=== PATIENT | male | born 1990 | race Caucasian/White ===

== ENCOUNTER 2019-11-13 19:06 | Outpatient (REF) | payer MEDICARE, MEDICAID, SELFPAY ==
[2019-11-13 20:59] LABS: Anion Gap 5.3 mmol/L (3-11); BUN 7 mg/dL (7-18); CO2 30.7 mmol/L (21.0-32.0); Calcium 8.9 mg/dL (8.5-10.1); Chloride 104 mmol/L (98-107); Glucose 99 mg/dL (74-106); Potassium 3.9 mmol/L (3.5-5.1); Sodium 140 mmol/L (136-145)
[2019-11-13 21:02] LABS: Hemoglobin A1C 5.7 % (3.8-5.6)
== END 2019-11-13 19:26 ==
LOC: NCHCN 19:06
PROVIDERS: PCP Internal Medicine; Visit Provider Physician Assistant
DX: I10 Essential (primary) hypertension (principal); L83 Acanthosis nigricans; R73.09 Other abnormal glucose
CPT/HCPCS: 80048; 83036

== ENCOUNTER 2021-06-25 17:39 | Inpatient (IN) | payer MEDICARE, MEDICAID, SELFPAY ==
[2021-06-25 17:49] VITALS: BP 140/80; PULSE 103; RESP 16; TEMP 36.3; O2SAT 96
--- NOTE | 2021-06-25 18:30 | DI.CT_ITS ---
Exam(s) CT ABDOMEN PELVIS W EXAM: CT ABDOMEN PELVIS W CLINICAL HISTORY: RLQ abd pain TECHNIQUE: COMPARISON: No exams were available for comparison FINDINGS: CT examination of the abdomen and pelvis was performed with bolus infusion of 100 cc of Omnipaque 350 . Images obtained through the lung bases are unremarkable. The liver shows evidence of hepatic steatosis with no evidence of a focal mass. Spleen is unremarkable in appearance.. Gallbladder and bile ducts are unremarkable. Pancreas is unremarkable in appearance. Adrenals appear normal bilaterally. Kidneys appear normal with no evidence of renal mass, hydronephrosis, or nephrolithiasis. Unremarkab le bladder. There is no evidence of abdominal or pelvic adenopathy. Abdominal aorta is of normal diameter and no abnormality is seen involving major visceral branches.. There is marked periappendiceal fat stranding and a poorly defined distended appendix period findings are highly suggestive of acute appendicitis, no evidence of acute perforation. No abscess identifie d.. No evidence diverticulitis or bowel obstruction. No significant abdominal wall hernia seen. Impression: Findings are consistent with acute uncomplicated appendicitis.. RADIATION DOSE DELIVERED: 1,204.77mGy.cm Total DLP 1,204.77mGy.cm Total DLP !Error CTDIvol DATA REPOSITORY: All CT scans at this facility are submitted to the National Radiology Data Registry (NRDR) Dose Index Registry (DIR) with the [employer] ([employer]). RADIATION OPTIMIZATION: All CT scans at this facility use at least one of these dose optimization te chniques: automated exposure control; mA and/or kV adjustment per patient size (includes targeted exa ms where dose is matched to clinical indication); or iterative reconstruction.
[2021-06-25] MEDS: Normal Saline 1,000 ML 1000 ML IV (19:07)
[2021-06-25 19:12] LABS: Abs Immature Grans 0.09 10^3/uL (0.0-0.06); Absolute Basophil Count 0.04 10^3/uL (0.0-0.2); Absolute Eosinophil Count 0.02 10^3/uL (0.0-0.7); Absolute Lymphocyte Count 1.37 10^3/uL (1.2-3.4); Absolute Monocyte Count 1.25 10^3/uL (0.1-0.8); Absolute Neutrophil Count 17.09 10^3/uL (1.2-6.7); Basophils % 0.2; Eosinophils % 0.1; HCT 41.6 % (40.0-50.0); HGB 13.6 g/dL (13.5-17.5); Immature Grans % 0.5; Lymphocytes % 6.9; MCHC 32.7 % (32.0-36.0); MCV 91.6 fL (80-95); MPV 9.7 fL (8.0-11.0); Monocytes % 6.3; Nucleated RBC 0 %; Platelet Count 251 10^3/uL (130-400); RBC 4.54 10^6/uL (4.36-5.78); RDW 12.4 % (11.8-14.1); RDW-SD 41.9 fL; WBC 19.87 10^3/uL (4.4-10.8)
[2021-06-25] MEDS: MORPHine 10 MG/ML VIAL 4 MG IVP (19:12)
[2021-06-25] MEDS: Ondansetron 4 MG/2 ML VIAL IVP (19:13)
[2021-06-25 19:16] LABS: Lipase 48 U/L (73-393); Magnesium 1.8 mg/dL (1.8-2.4)
--- NOTE | 2021-06-25 19:20 | W.ED.GENAD ---
Discharge Plan Disposition Patient Disposition: [facility] INPATIENT Condition: Serious Discharge Details Clinical Impression: Acute appendicitis Admit Date/Time: 06/25/21 19:38 Admit Provider: Lashanda Cardenas Attending Provider: Lashanda Cardenas Primary Care Provider: Tommy Marti ED Provider: Porfirio Ray Discharge Data Discharge Date/Time-TO BE ENTERED AT DEPARTURE: 06/25/21 20:36 Medical Decision Making Patient presenting the emergency department with chief complaint of abdominal pain. Patient is mildly acute ill in appearance and states that abdominal pain started this morning. Around noon he took 1 ibuprofen which he typically does not take any pain medication. Went to work but continued up into discomfort. Mother encouraged him to come to the emergency department due to decreased appetite along with continued abdominal pain. Patient denies any fever chills, diarrhea constipation, genital or urinary issues. Physical exam shows exquisitely tender right lower quadrant with guarding noted. Otherwise exam is unremarkable. Plan to check labs, perform CT imaging, and treat patient's pain pending results. Highly suspicious for appendicitis but also considered renal/ureteral calculi, hernia, or other intra-abdominal pathology. Review of labs show a significant elevation of WBCs along with neutrophils and monocytes, slightly low potassium and unremarkable lipase otherwise nondiagnostic labs. Review of CT imaging shows significant inflammation and appendicitis. Contacted Dr. Cardenas for surgical consult and discussion of admission. She was agreeable for admission of patient and placed an antibiotic and admission orders for patient. Patient was agreeable also to this plan. Imaging Data Radiologic Study: Imaging: CT Scan Radiologist's impression: IMPRESSION: Severe acute appendicitis. No perforation, abscess, obsruction. Lab Data Lab results reviewed: Yes I reviewed the patient's lab results. Labs: Laboratory Tests Range/Units 06/25/21 06/25/21 06/25/21 18:50 18:50 18:50 WBC (4.4-10.8) 10^3/uL 19.87 H RBC (4.36-5.78) 10^6/uL 4.54 Hgb (13.5-17.5) g/dL 13.6 Hct (40.0-50.0) % 41.6 MCV (80-95) fL 91.6 MCH (27.0-33.0) pg 30.0 MCHC (32.0-36.0) % 32.7 RDW (11.8-14.1) % 12.4 Plt Count (130-400) 10^3/uL 251 MPV (8.0-11.0) fL 9.7 Immature Gran % 0.5 Neutrophils % 86.0 Lymphocytes % 6.9 Monocytes % 6.3 Eosinophils % 0.1 Basophils % 0.2 Nucleated RBC % % 0 Absolute Neutrophils (1.2-6.7) 10^3/uL 17.09 H Absolute Lymphocytes (1.2-3.4) 10^3/uL 1.37 Absolute Monocytes (0.1-0.8) 10^3/uL 1.25 H Absolute Eosinophils (0.0-0.7) 10^3/uL 0.02 Absolute Basophils (0.0-0.2) 10^3/uL 0.04 Sodium (136-145) mmol/L 138 Potassium (3.5-5.1) mmol/L 3.4 L Chloride (98-107) mmol/L 101 Carbon Dioxide (21.0-32.0) mmol/L 29.5 Anion Gap (3-11) mmol/L 7.5 BUN (7-18) mg/dL 9 Creatinine (0.70-1.30) mg/dL 0.9 Estimated GFR/1.73 m2 (mL/min/1.73m2) >= 60.00 Glucose (74-106) mg/dL 118 H Calcium (8.5-10.1) mg/dL 8.9 Magnesium (1.8-2.4) mg/dL 1.8 Total Bilirubin (0.2-1.0) mg/dL 1.0 AST (15-37) U/L 21 ALT (16-63) U/L 31 Alkaline Phosphatase (46-116) U/L 119 H Total Protein (6.4-8.2) g/dL 7.9 Albumin (3.4-5.0) g/dL 3.7 Lipase (73-393) U/L 48 COVID-19 Source Range/Units 06/25/21 19:57 WBC (4.4-10.8) 10^3/uL RBC (4.36-5.78) 10^6/uL Hgb (13.5-17.5) g/dL Hct (40.0-50.0) % MCV (80-95) fL MCH (27.0-33.0) pg MCHC (32.0-36.0) % RDW (11.8-14.1) % Plt Count (130-400) 10^3/uL MPV (8.0-11.0) fL Immature Gran % Neutrophils % Lymphocytes % Monocytes % Eosinophils % Basophils % Nucleated RBC % % Absolute Neutrophils (1.2-6.7) 10^3/uL Absolute Lymphocytes (1.2-3.4) 10^3/uL Absolute Monocytes (0.1-0.8) 10^3/uL Absolute Eosinophils (0.0-0.7) 10^3/uL Absolute Basophils (0.0-0.2) 10^3/uL Sodium (136-145) mmol/L Potassium (3.5-5.1) mmol/L Chloride (98-107) mmol/L Carbon Dioxide (21.0-32.0) mmol/L Anion Gap (3-11) mmol/L BUN (7-18) mg/dL Creatinine (0.70-1.30) mg/dL Estimated GFR/1.73 m2 (mL/min/1.73m2) Glucose (74-106) mg/dL Calcium (8.5-10.1) mg/dL Magnesium (1.8-2.4) mg/dL Total Bilirubin (0.2-1.0) mg/dL AST (15-37) U/L ALT (16-63) U/L Alkaline Phosphatase (46-116) U/L Total Protein (6.4-8.2) g/dL Albumin (3.4-5.0) g/dL Lipase (73-393) U/L COVID-19 Source Nasal/Nares HPI General Mode of arrival: ambulatory. Date/Time Provider Initiated Documentation: 06/25/21 18:23. Limitations to Documentation: no limitations. Information obtained by: patient, family and RN notes reviewed. History of Present Illness 31 year old M presents to the emergency department with the chief complaint of abd pain, described as moderate, with intensity rated at 4. Quality is described as aching and sharp, and is localized to the abdomen. Patient reports no radiation. Patient started experiencing this hour(s) (5) and it has been constant. improves with No relieving factors improve symptom(s), No exacerbating factors reported . Patient notes denies chest pain and shortness of breath. Patient did receive the following treatments prior to arrival, NSAID Related Data Home Medications Medication Instructions Recorded Confirmed Unknown [No Known Home Meds] 06/25/21 06/25/21 Allergies Allergy/AdvReac Type Severity Reaction Status Date / Time No Known Allergies Allergy Unverified 06/25/21 19:51 General Stated Complaint: Abd Prob SNATI: 3 Review of Systems Constitutional Constitutional: Denies chills, Denies fever(s) and Reports poor appetite Cardiovascular Cardiovascular: Denies chest pain and Denies dyspnea Respiratory Respiratory: Denies cough and Denies dyspnea Gastrointestinal Gastrointestinal: Reports as per HPI, Reports abdominal pain, Denies melena, Denies change in bowel habits, Denies constipation, Denies diarrhea, Denies nausea and Denies vomiting Genitourinary Genitourinary: Denies hematuria, Denies difficulty urinating, Denies testicular pain, Denies urinary hesitancy, Denies urinary incontinence and Denies urinary urgency Integumentary/Breasts Skin/Breast: Denies rash PFSH All Active Problems (Updated 06/25/21 @ 20:11 by Porfirio Ray NP) Autistic behavior (Acute) Acute appendicitis (Acute) Social History Smoking/Tobacco Use Status: Never Smoking risk assessment performed?: Yes Alcohol Intake: never Drug use: Never Do you feel safe at home: Yes Do you feel safe in your relationship?: Yes Exam Const General: cooperative Orientation: alert, awake and oriented x3 Resp Effort & Inspection: normal respiratory effort and able to speak in complete sentences Auscultation: clear to auscultation bilaterally Cardio Rate: regular rate Rhythm: regular rhythm Heart Sounds: S1 normal and S2 normal GI Inspection: normal to inspection and obesity Palpation: soft, not firm, guarding in the RLQ, no masses, no pulsatile masses, not rigid and tender in the RLQ and psoas sign positive; Negative for Landon's sign negative Auscultation: normal bowel sounds Back/Spine/Pelvis Back: no CVA tenderness Neuro General: patient alert, patient awake, patient oriented x3, gait normal and moves all extremities Course Vital Signs Vital signs: Vital Signs Temperature 36.3 C L 06/25/21 17:49 Pulse 103 H 06/25/21 17:49 Respiratory Rate 16 06/25/21 17:49 Blood Pressure 140/80 06/25/21 17:49 Pulse Oximetry 96 06/25/21 17:49 Temperature 36.3 C L 06/25/21 17:49 Temperature Source Skin 06/25/21 17:49 Pulse 103 H 06/25/21 17:49 Respiratory Rate 16 06/25/21 17:49 Respiratory Effort 06/25/21 17:57 Blood Pressure 140/80 06/25/21 17:49 Blood Pressure Position Sitting 06/25/21 17:49 Pulse Oximetry 96 06/25/21 17:49 Oxygen Delivery Method Room Air 06/25/21 17:49 Oxygen Flow Rate 0 06/25/21 17:49 Pain Level 4 06/25/21 17:49 Lab/Test Results Lab/Test Results: Laboratory Tests Range/Units 06/25/21 18:50 WBC (4.4-10.8) 10^3/uL 19.87 H RBC (4.36-5.78) 10^6/uL 4.54 Hgb (13.5-17.5) g/dL 13.6 Hct (40.0-50.0) % 41.6 MCV (80-95) fL 91.6 MCH (27.0-33.0) pg 30.0 MCHC (32.0-36.0) % 32.7 RDW (11.8-14.1) % 12.4 Plt Count (130-400) 10^3/uL 251 MPV (8.0-11.0) fL 9.7 Immature Gran % 0.5 Neutrophils % 86.0 Lymphocytes % 6.9 Monocytes % 6.3 Eosinophils % 0.1 Basophils % 0.2 Nucleated RBC % % 0 Absolute Neutrophils (1.2-6.7) 10^3/uL 17.09 H Absolute Lymphocytes (1.2-3.4) 10^3/uL 1.37 Absolute Monocytes (0.1-0.8) 10^3/uL 1.25 H Absolute Eosinophils (0.0-0.7) 10^3/uL 0.02 Absolute Basophils (0.0-0.2) 10^3/uL 0.04
[2021-06-25 19:22] LABS: ALT 31 U/L (16-63); AST 21 U/L (15-37); Albumin 3.7 g/dL (3.4-5.0); Alkaline Phosphatase 119 U/L (46-116); Anion Gap 7.5 mmol/L (3-11); BUN 9 mg/dL (7-18); CO2 29.5 mmol/L (21.0-32.0); CREATININE 0.9 mg/dL (0.70-1.30); Calcium 8.9 mg/dL (8.5-10.1); Chloride 101 mmol/L (98-107); Glucose 118 mg/dL (74-106); Potassium 3.4 mmol/L (3.5-5.1); Sodium 138 mmol/L (136-145); Total Protein 7.9 g/dL (6.4-8.2)
[2021-06-25] MEDS: Omnipaque 350 MG/ML 100 ML BTL IJ (19:30)
--- NOTE | 2021-06-25 19:41 | HPE_ITS ---
Date of service: 06/25/21 Time of Service: 20:00 Assessment and Plan Assessment and plan (1) Acute appendicitis: Status: Acute Assessment and plan: -IV Zosyn ordered, repeat labs in AM and plan for laparoscopic appendectomy -NPO after midnight -IV fluids, replete electrolytes -SQ Lovenox for DVT ppx -IV Protonix for GI ppx (2) Autistic behavior: Status: Acute History of Present Illness Narrative: 31 year old male with history of intellectual disability who developed abdominal pain earlier this afternoon. He reportedly ate much less than normal for his lunch and proceeded to work the afternoon. He returned home and continued to report abdominal discomfort despite taking advil. Patient's mother reports a very high pain tolerance. He was brought to the ER for evaluation where he was diagnosed with severe appendicitis via CT scan. [facility] All Active Problems (Updated 06/25/21 @ 20:11 by Porfirio Ray NP) Autistic behavior (Acute) Acute appendicitis (Acute) Social History Smoking/Tobacco Use Status: Never Smoking risk assessment performed?: Yes Alcohol Intake: never Drug use: Never Do you feel safe at home: Yes Do you feel safe in your relationship?: Yes Meds Allergies and Home Medications Allergies Allergy/AdvReac Type Severity Reaction Status Date / Time No Known Allergies Allergy Unverified 06/25/21 19:51 Home Medications Medication Instructions Recorded Confirmed Type Unknown [No Known Home Meds] 06/25/21 06/25/21 History Exam Const General: cooperative, healthy appearing and acute distress (slightly uncomfortable) mild Nutritional Appearance: average body habitus Limitations: other limitations (intellectual disability) [facility] Head: normal to inspection, normocephalic and atraumatic Resp Effort & Inspection: normal respiratory effort, able to speak in complete sentences, no audible wheezes, no cough and no respiratory distress Cardio Rate: tachycardic Rhythm: regular rhythm GI Inspection: normal to inspection, non-distended and obesity Palpation: soft and tender in the RLQ and Rovsing's sign positive Percussion: normal to percussion Neuro General: patient alert, patient awake and patient oriented x3 Cognition: abnormal cognition Speech: speech normal Results Labs Result diagrams: 06/26/21 06:35 06/26/21 06:35 Labs: Laboratory Results - last 24 hr 06/25/21 06/25/21 06/25/21 18:50 18:50 18:50 WBC 19.87 H RBC 4.54 Hgb 13.6 Hct 41.6 MCV 91.6 MCH 30.0 MCHC 32.7 RDW 12.4 Plt Count 251 MPV 9.7 Immature Gran % 0.5 Neutrophils % 86.0 Lymphocytes % 6.9 Monocytes % 6.3 Eosinophils % 0.1 Basophils % 0.2 Nucleated RBC % 0 Absolute Neutrophils 17.09 H Absolute Lymphocytes 1.37 Absolute Monocytes 1.25 H Absolute Eosinophils 0.02 Absolute Basophils 0.04 Sodium 138 Potassium 3.4 L Chloride 101 Carbon Dioxide 29.5 Anion Gap 7.5 BUN 9 Creatinine 0.9 Estimated GFR/1.73 m2 >= 60.00 Glucose 118 H Calcium 8.9 Magnesium 1.8 Total Bilirubin 1.0 AST 21 ALT 31 Alkaline Phosphatase 119 H Total Protein 7.9 Albumin 3.7 Lipase 48 Last Vital Signs Temp 97.3 F L 06/25/21 17:49 Pulse 103 H 06/25/21 17:49 Resp 16 06/25/21 17:49 BP 140/80 06/25/21 17:49 Pulse Ox 96 06/25/21 17:49
[2021-06-25] MEDS: PIPERACILLIN/TAZO 3.375 GM in Normal Saline 50 ML IVPB (19:45)
[2021-06-25 20:03] LABS: Source Nasal/Nares
--- NOTE | 2021-06-25 20:20 | DI.VRAD_ITS ---
Addendum created by Beatriz Cordova DO on 06/25/2021 8:24:15 PM EDT: THIS REPORT CONTAINS FINDINGS THAT MAY BE CRITICAL TO PATIENT CARE. The findings were verbally communicated via telephone conference at 8:23 PM EDT on 06/25/[address] Piedra. The findings were acknowledged and understood. Initial report created on 06/25/2021 8:19:59 PM EDT: PROCEDURE INFORMATION: Exam: CT Abdomen And Pelvis With Contrast Exam date and time: 06/25/2021 7:24 PM Age: 31 years old Clinical indication: Abdominal pain; Localized; Right lower quadrant (rlq); Additional info: Rlq pain TECHNIQUE: Imaging protocol: Computed tomography of the abdomen and pelvis with contrast. Radiation optimization: All CT scans at this facility use at least one of these dose optimization techniques: automated exposure control; mA and/or kV adjustment per patient size (includes targeted exams where dose is matched to clinical indication); or iterative reconstruction. Contrast material: OMNI 350; Contrast volume: 100 ml; Contrast route: INTRAVENOUS (IV); COMPARISON: No relevant prior studies available. FINDINGS: Lungs: No concerning finding. Liver: Decreased hepatic attenuation, consistent with steatosis. The liver is unremarkable. Gallbladder and bile ducts: The gallbladder is unremarkable. No biliary ductal dilatation. Pancreas: The pancreas is unremarkable. Spleen: The spleen is unremarkable. Adrenal glands: The adrenal glands are unremarkable. Kidneys and ureters: No hydronephrosis or nephrolithiasis. Stomach and bowel: No abnormal bowel distention. Cecal and terminal ileal wall thickening and adjacent stranding, likely reactive. No other abnormal bowel wall thickening or inflammatory change. Appendix: Distended appendix with prominent periappendiceal inflammatory change, consistent with severe acute appendicitis. Intraperitoneal space: Small amount of simple pelvic ascites Vasculature: The aorta is unremarkable. Lymph nodes: Unremarkable. No enlarged lymph nodes. Urinary bladder: Unremarkable as visualized. Reproductive: Unremarkable as visualized. Bones/joints: Unremarkable. No acute fracture. Soft tissues: Unremarkable. IMPRESSION: Severe acute appendicitis. No perforation, abscess, obsruction. Dictated and Authenticated by: Beatriz Cordova MD. Ordering:XIANG Monroy MD
[2021-06-25 20:24] VITALS: BP 134/76; PULSE 89; RESP 18; O2SAT 94
[2021-06-25 21:02] LABS: COVID-19 PCR Negative (Negative)
[2021-06-25] MEDS: Lactated Ringers 1,000 ML 125 ML IV (21:23)
[2021-06-25 21:37] VITALS: TEMP 37.6
[2021-06-25] MEDS: ACETAMINOPHEN 1,000 MG/100 ML BTL 400 MG IVPB (21:37)
[2021-06-25] MEDS: Enoxaparin 40 MG/0.4 ML SYR SC (21:37)
[2021-06-25 21:43] VITALS: BP 128/79; PULSE 99; RESP 18; TEMP 37.6; O2SAT 98
[2021-06-26] VITALS (12 sets, daily range): BP systolic 128–159; BP diastolic 77–89; PULSE 70–85; RESP 13–20; TEMP 36.8–37.7; O2SAT 92–99; BMI 33.3
[2021-06-26] MEDS: PIPERACILLIN/TAZO 3.375 GM in Normal Saline 50 ML IVPB ×4 (02:23→20:08)
[2021-06-26 05:02] LABS: Bilirubin Negative (Negative); Blood Negative (Negative); Clarity Clear (Clear); Glucose Negative (Negative); Ketones 15 mg/dL (Negative); Leukocyte Esterase Negative (Negative); Nitrite Negative (Negative); Specific Gravity 1.015 (1.005-1.025)
[2021-06-26] MEDS: ACETAMINOPHEN 1,000 MG/100 ML BTL 400 MG IVPB ×3 (05:43→23:35)
[2021-06-26] MEDS: Lactated Ringers 1,000 ML 125 ML IV ×2 (05:43→23:47)
[2021-06-26 07:38] LABS: Abs Immature Grans 0.06 10^3/uL (0.0-0.06); Absolute Basophil Count 0.03 10^3/uL (0.0-0.2); Absolute Eosinophil Count 0.08 10^3/uL (0.0-0.7); Basophils % 0.2; Eosinophils % 0.5; HGB 12.3 g/dL (13.5-17.5); Immature Grans % 0.4; Lymphocytes % 11.6; MCH 29.6 pg (27.0-33.0); MCHC 31.5 % (32.0-36.0); Monocytes % 7.7; Neutrophils % 79.6; Nucleated RBC 0 %; Platelet Count 230 10^3/uL (130-400); RBC 4.15 10^6/uL (4.36-5.78); RDW 12.5 % (11.8-14.1); RDW-SD 43.5 fL; WBC 15.93 10^3/uL (4.4-10.8)
[2021-06-26 07:42] LABS: Absolute Lymphocyte Count 1.85 10^3/uL (1.2-3.4); Absolute Monocyte Count 1.23 10^3/uL (0.1-0.8); Absolute Neutrophil Count 12.68 10^3/uL (1.2-6.7)
[2021-06-26 08:11] LABS: ALT 23 U/L (16-63); AST 13 U/L (15-37); Albumin 2.9 g/dL (3.4-5.0); Alkaline Phosphatase 84 U/L (46-116); Anion Gap 4.6 mmol/L (3-11); BUN 8 mg/dL (7-18); Bilirubin, Total 0.9 mg/dL (0.2-1.0); CO2 29.4 mmol/L (21.0-32.0); CREATININE 0.8 mg/dL (0.70-1.30); Calcium 8.4 mg/dL (8.5-10.1); Chloride 105 mmol/L (98-107); Glucose 102 mg/dL (74-106); Magnesium 1.9 mg/dL (1.8-2.4); Potassium 3.5 mmol/L (3.5-5.1); Sodium 139 mmol/L (136-145); Total Protein 6.8 g/dL (6.4-8.2)
[2021-06-26] MEDS: Pantoprazole 40 MG VIAL IVP (08:29)
[2021-06-26] MEDS: Normal Saline Flush 10 ML SYR IVP ×5 (08:32→20:14)
--- NOTE | 2021-06-26 10:23 | W.PM.PROGNOT ---
Date of Service Date of service: 06/26/21 Time of Service: 09:15 Assessment and Plan Assessment and plan (1) Acute appendicitis: Status: Acute Assessment and plan: -After discussing all risks, benefits and alternatives including interval appendectomy with the patient and his mother at the bedside informed consent was obtained for laparoscopic appendectomy possible open today in the operating room. -Continue IV Zosyn -Continue IV fluids, replete electrolytes -SQ Lovenox for DVT ppx -IV Protonix for GI ppx -Will likely keep patient for 24h of IV abx post operatively, further recommendations to be discussed after surgery (2) Autistic behavior: Status: Acute Subjective Subjective Patient reports: no new complaints, still having pain and no bowel movement Exam Const General: cooperative, healthy appearing and acute distress (slightly uncomfortable) mild Nutritional Appearance: average body habitus Limitations: other limitations (intellectual disability) [facility] Head: normal to inspection, normocephalic and atraumatic Resp Effort & Inspection: normal respiratory effort, able to speak in complete sentences, no audible wheezes, no cough and no respiratory distress Cardio Rate: tachycardic Rhythm: regular rhythm GI Inspection: normal to inspection, non-distended and obesity Palpation: soft and tender in the RLQ and Rovsing's sign positive Percussion: normal to percussion Neuro General: patient alert, patient awake and patient oriented x3 Cognition: abnormal cognition Speech: speech normal Objective Last Vital Signs Temp 98.8 F 06/26/21 08:26 Pulse 72 06/26/21 08:26 Resp 20 06/26/21 08:26 BP 128/77 06/26/21 08:26 Pulse Ox 95 06/26/21 08:26 Laboratory Results - last 24 hr 06/25/21 06/25/21 06/25/21 18:50 18:50 18:50 WBC 19.87 H RBC 4.54 Hgb 13.6 Hct 41.6 MCV 91.6 MCH 30.0 MCHC 32.7 RDW 12.4 Plt Count 251 MPV 9.7 Immature Gran % 0.5 Neutrophils % 86.0 Lymphocytes % 6.9 Monocytes % 6.3 Eosinophils % 0.1 Basophils % 0.2 Nucleated RBC % 0 Absolute Neutrophils 17.09 H Absolute Lymphocytes 1.37 Absolute Monocytes 1.25 H Absolute Eosinophils 0.02 Absolute Basophils 0.04 Sodium 138 Potassium 3.4 L Chloride 101 Carbon Dioxide 29.5 Anion Gap 7.5 BUN 9 Creatinine 0.9 Estimated GFR/1.73 m2 >= 60.00 Glucose 118 H Calcium 8.9 Magnesium 1.8 Total Bilirubin 1.0 AST 21 ALT 31 Alkaline Phosphatase 119 H Total Protein 7.9 Albumin 3.7 Lipase 48 Urine Color Urine Clarity Urine pH Ur Specific Adrian Urine Protein Urine Ketones Urine Blood Urine Nitrite Urine Bilirubin Urine Urobilinogen Ur Leukocyte Esterase Urine Glucose COVID-19 Source SARS-CoV-2 (PCR) 06/25/21 06/26/21 06/26/21 19:57 04:00 06:35 WBC RBC Hgb Hct MCV MCH MCHC RDW Plt Count MPV Immature Gran % Neutrophils % Lymphocytes % Monocytes % Eosinophils % Basophils % Nucleated RBC % Absolute Neutrophils Absolute Lymphocytes Absolute Monocytes Absolute Eosinophils Absolute Basophils Sodium 139 Potassium 3.5 Chloride 105 Carbon Dioxide 29.4 Anion Gap 4.6 BUN 8 Creatinine 0.8 Estimated GFR/1.73 m2 >= 60.00 Glucose 102 Calcium 8.4 L Magnesium 1.9 Total Bilirubin 0.9 AST 13 L ALT 23 Alkaline Phosphatase 84 Total Protein 6.8 Albumin 2.9 L Lipase Urine Color Yellow Urine Clarity Clear Urine pH 7.0 Ur Specific Adrian 1.015 Urine Protein Negative Urine Ketones 15 H Urine Blood Negative Urine Nitrite Negative Urine Bilirubin Negative Urine Urobilinogen 4.0 H Ur Leukocyte Esterase Negative Urine Glucose Negative COVID-19 Source Nasal/Nares SARS-CoV-2 (PCR) Negative 06/26/21 06:35 WBC 15.93 H RBC 4.15 L Hgb 12.3 L Hct 39.0 L MCV 94.0 MCH 29.6 MCHC 31.5 L RDW 12.5 Plt Count 230 MPV 10.0 Immature Gran % 0.4 Neutrophils % 79.6 Lymphocytes % 11.6 Monocytes % 7.7 Eosinophils % 0.5 Basophils % 0.2 Nucleated RBC % 0 Absolute Neutrophils 12.68 H Absolute Lymphocytes 1.85 Absolute Monocytes 1.23 H Absolute Eosinophils 0.08 Absolute Basophils 0.03 Sodium Potassium Chloride Carbon Dioxide Anion Gap BUN Creatinine Estimated GFR/1.73 m2 Glucose Calcium Magnesium Total Bilirubin AST ALT Alkaline Phosphatase Total Protein Albumin Lipase Urine Color Urine Clarity Urine pH Ur Specific Adrian Urine Protein Urine Ketones Urine Blood Urine Nitrite Urine Bilirubin Urine Urobilinogen Ur Leukocyte Esterase Urine Glucose COVID-19 Source SARS-CoV-2 (PCR)
--- NOTE | 2021-06-26 10:51 | W.ANESPRE ---
General Info Date of Service Date Performed: 06/26/21 Height: 6 ft 3 in Weight: 120.8 kg Body Mass Index (BMI): 33.3 Surgical Procedure: Operation Date: 06/26/21 10:45 Proposed Procedure Side Surgeon p Appendectomy Laparoscopic Lashanda Cardenas, Meds Allergies and Home Medications Allergies Allergy/AdvReac Type Severity Reaction Status Date / Time No Known Allergies Allergy Unverified 06/25/21 19:51 Home Medication Medication Instructions Recorded Unknown [No Known Home Meds] 06/25/21 Current Visit Medications: Current Medications Generic Name Dose Route Start Last Admin Trade Name Freq PRN Reason Stop Dose Admin Enoxaparin Sodium 40 mg 06/25/21 20:00 06/25/21 21:37 Enoxaparin 40 Mg/0.4 Ml Syr SC 40 mg Q24H LAVELL Administration Sodium Chloride 500 mls @ 0 mls/hr 06/25/21 19:38 Saline 500ml Bag IV PRN PRN As Directed Ringer's Solution 1,000 mls @ 125 mls/hr 06/25/21 19:45 06/26/21 05:43 IV 125 mls/hr INFUSION LAVELL Administration Acetaminophen 1,000 mg in 100 mls @ 400 mls/hr 06/25/21 22:00 06/26/21 08:33 Ofirmev IVPB Infused Q8H LAVELL Infusion Piperacillin Sod/Tazobactam 50 mls @ 100 mls/hr 06/26/21 02:00 06/26/21 08:30 Sod 3.375 gm/ Sodium Chloride IVPB 100 mls/hr Q6H LAVELL Administration Protocol IV Miscellaneous Supplies 1 each 06/25/21 19:45 Iv Access IV DIRECTED LAVELL Morphine Sulfate 2 mg 06/25/21 19:38 Morphine 2 Mg/Ml Syr IVP Q1H PRN PRN Ondansetron HCl 4 mg 06/25/21 19:38 Ondansetron 4 Mg/2 Ml Vial IVP Q4H PRN PRN Pantoprazole Sodium 40 mg 06/26/21 08:00 06/26/21 08:29 Pantoprazole 40 Mg Vial IVP 40 mg Q24H LAVELL Administration Sodium Chloride 0 ml 06/25/21 19:38 06/26/21 08:32 Normal Saline Flush 10 Ml Syr IVP 40 ml PRN PRN Administration PFSH Active Problems Active Problems: Problem Status Onset Code Autistic behavior F84.0 Acute appendicitis K35.80 Tobacco Smoking/Tobacco Use Status: Never Alcohol Alcohol Intake: never Substance Use Substance use: Never Vital Signs and Lab Results Vital Signs Most Recent Vital Signs in EMR: Most Recent Vital Signs Temp Pulse Resp BP Pulse Ox 37.1 C 72 20 128/77 95 06/26/21 08:26 06/26/21 08:26 06/26/21 08:26 06/26/21 08:26 06/26/21 08:26 Lab Results Result Diagrams: 06/26/21 06:35 06/26/21 06:35 Blood Type / Crossmatch: No Data to Display Complete Blood Count: White Blood Count 15.93 10^3/uL (4.4-10.8) H 06/26/21 06:35 06/26/21 Red Blood Count 4.15 10^6/uL (4.36-5.78) L 06/26/21 06:35 06/26/21 Hemoglobin 12.3 g/dL (13.5-17.5) L 06/26/21 06:35 06/26/21 Hematocrit 39.0 % (40.0-50.0) L 06/26/21 06:35 06/26/21 Platelet Count 230 10^3/uL (130-400) 06/26/21 06:35 06/26/21 Complete Metabolic Panel: Sodium Level 139 mmol/L (136-145) 06/26/21 06:35 06/26/21 Potassium Level 3.5 mmol/L (3.5-5.1) 06/26/21 06:35 06/26/21 Chloride Level 105 mmol/L (98-107) 06/26/21 06:35 06/26/21 Carbon Dioxide Level 29.4 mmol/L (21.0-32.0) 06/26/21 06:35 06/26/21 Blood Urea Nitrogen 8 mg/dL (7-18) 06/26/21 06:35 06/26/21 Creatinine 0.8 mg/dL (0.70-1.30) 06/26/21 06:35 06/26/21 Estimated GFR/1.73 m2 >= 60.00 (mL/min/1.73m2) 06/26/21 06:35 06/26/21 Magnesium Level 1.9 mg/dL (1.8-2.4) 06/26/21 06:35 06/26/21 Calcium Level 8.4 mg/dL (8.5-10.1) L 06/26/21 06:35 06/26/21 Albumin 2.9 g/dL (3.4-5.0) L 06/26/21 06:35 06/26/21 Glucose Level 102 mg/dL (74-106) 06/26/21 06:35 06/26/21 Liver Function Panel: Alanine Aminotransferase (ALT/SGPT) 23 U/L (16-63) 06/26/21 06:35 06/26/21 Aspartate Amino Transf (AST/SGOT) 13 U/L (15-37) L 06/26/21 06:35 06/26/21 Coagulation Panel: No Data to Display Cardiac Panel: No Data to Display Arterial Blood Gas: No Data to Display Venous Blood Gas: No Data to Display Pancreas Panel: Lipase 48 U/L (73-393) 06/25/21 18:50 06/25/21 Thyroid Panel: No Data to Display Infectious Disease: Coronavirus (COVID-19)(PCR) Negative (Negative) 06/25/21 19:57 06/25/21 Coronavirus 2019 Source Nasal/Nares 06/25/21 19:57 06/25/21 Blood Cultures: No Data to Display Toxicology Panel: No Data to Display Anesthesia Assessment and Plan Anesthesia History Personal History: No History of Anesthesia Complications Family History: No Family History of Anesthesia Complications Exercise Tolerance Exercise Tolerance: Metabolic Equivalents>4 Pertinent Negatives Pertinent Negatives: No Symptoms of GERD, No Major Cardiovascular Symptoms or Complaints and No Major Pulmonary Symptoms or Complaints Cardiac & Pulmonary Exam Cardiac Exam: Normal S1/S2 Heart Sounds Pulmonary Exam: Clear Bilateral Breath Sounds Implantable Cardiac Device Does patient have a Pacemaker or an ICD?: No Airway Exam Known Difficult Airway: No Mallampati Class: 2 Mouth Opening: Normal (> 3cm) Thyromental Distance: Greater than 3 cm Neck Range of Motion: Full ROM Neck Circumference: Normal Teeth Condition: Normal Dentition ASA Classification ASA Score: ASA 2 Emergency Case?: Yes NPO Status NPO Status: NPO Clears >2 hours, Solids >8 hours Anesthesia Plan Resuscitation Status: Full Code Anesthesia Technique: General Anesthesia Airway Planned: Endotracheal Tube Monitors Used: Standard Monitors Preoperative Comments:: Severe autism, plan for Mother to be present as much as possible.
[2021-06-26] MEDS: Lactated Ringers 1,000 ML 75 ML IV (11:40)
[2021-06-26] MEDS: Bupivacaine LIPOSOME/PF 133 MG/10 ML VIAL IJ (12:03)
[2021-06-26] MEDS: Bupivacaine 0.25% Pres-Free 30 ML VIAL (12:03)
--- NOTE | 2021-06-26 12:41 | APP_PTH ---
PATIENT: Donato Bagley LOC: U#:[id number] AGE/SX: 31/M ROOM: 208 RE06/25/[address]: Lashanda Cardenas DO : 1990 BED: A DIS: 07/04/2021 SPEC #: [id number] RECD: 06/28/21 11:44 STATUS: NHAN REQ #: [id number] JOSE DANIEL: 06/26/21 12:[address]: Lashanda Cardenas DEPT: Surgical Specimen RECD BY: Clarisse Mcguire ENTERED: 06/28/21 11:45 SP TYPE: Appendix OTHR DR: Tommy Marti Tissues: 1 - APPENDIX NOT INCIDENTAL Procedures: GROSS AND MICRO LEVEL 3 Comments: [id number]
--- NOTE | 2021-06-26 12:53 | ROE_ITS ---
Operative Note Operative Note DATE OF PROCEDURE: 06/26/21 PRE-OP DIAGNOSIS: acute appendicitis POST-OP DIAGNOSIS: other suppurative appendicitis PROCEDURE: laparoscopic appendectomy SURGEON: Lashanda Cardenas DENTAL CHAIRSIDE ASSISTANT: Brittani Mcintosh ANESTHESIA TYPE: Local By Surgeon and General LMA/ETT Refer to Anesthesia Record ESTIMATED BLOOD LOSS: 10 PATHOLOGY: other (appendix) COMPLICATIONS: None Patient was transported to: PACU Patient's condition: stable Implants: none Indications: Patient with continued right lower quadrant pain, labs and imaging consistent with acute appendicitis. In addition to IV antibiotics and after discussing all risks, benefits and alternatives with the patient and his mother at the bedside informed consent was obtained for laparoscopic appendectomy. Findings: Suppurative appendicitis, phlegmonous changes surrounding the appendix and right colon Procedure Description: The patient was taken to the operating room and placed on the operating room table in supine position. All dependent areas were carefully padded and protected. After induction of general anesthesia a time out procedure was performed confirming the patient and procedure. The patient was then prepped and draped in the usual sterile fashion. Local anesthesia was injected into the supraumbilical tissues and using an 11 blade scalpel an incision was made. Dissection was carried down through the subcutaneous tissues using bovie electrocautery. The fascia was grasped with a lara and incised with cautery. The 12mm port was placed and the abdomen was insufflated. Two subsequent 5mm ports were placed under direct visualization in the suprapubic area as well as left lower quadrant. There was a large phlegmon encountered in the right lower quadrant. The omentum had become adherent to the appendix, once freed there was evidence of pus surrounding the dilated and edematous appendix. It was very difficult to grasp the appendix because of the edema and induration. A maralynd ligasure was used to transect the mesoappendix hemostatically. The tissues surrounding this area were very friable. Then a 45mm purple load was used to stable across the base of the appendix. The appendix was placed into an endocatch bag and removed from the abdomen. Further inspection of the staple line confirmed hemostasis. Any remaining fluid and blood was suctioned out of the right lower quadrant. Irrigation was not used in an effort to prevent spread of the infection. Drain placement was considered but after suctioning the area free of remaining fluid it was decided against. Both 5mm ports were removed und er direct visualization followed by the 12mm port. The suprumbilical incision was closed with a figure of eight 0-vicryl. The skin was closed with 4-0 monocryl followed by skin glue. All needle, sponge and instrument counts were correct x2 at the end of the procedure. The patient was subsequently awakened and transferred to PACU in stable condition.
--- NOTE | 2021-06-26 13:47 | W.ANESPOSTOP ---
Postoperative Evaluation Date, Time and Location Date Performed: 06/26/21 Time Performed: 13:47 Patient Location: PACU Vital Signs Most Recent Imported Vital Signs: Most Recent Vital Signs Temp Pulse Resp BP Pulse Ox 37.1 C 79 15 152/81 H 92 06/26/21 13:37 06/26/21 13:37 06/26/21 13:37 06/26/21 13:37 06/26/21 13:37 Pain Score Most Recent Pain Score: Most Recent Pain Score Pain Level 6 06/26/21 11:13 Assessment Mental Status: Arousable with meaningful communication Airway and Respiratory Function: Patent airway with normal (patient baseline) respiratory exam Cardiovascular Function: Hemodynamically Stable Hydration Status: Adequately Hydrated Nausea & Vomiting: No Nausea or Vomiting Pain: Pain is tolerable per patient Peripheral Nerve Block: Patient did not receive a nerve block
[2021-06-26] MEDS: MORPHine 2 MG/ML SYR IVP ×2 (16:42→20:14)
--- NOTE | 2021-06-26 20:04 | INITIAL_ITS ---
- If Service Date Differs Date of service: 06/26/21 Time of Service: 20:04 Care Management Initial Assess REASON FOR HOSPITALIZATION:: Acute Appendicitis PAST MEDICAL HISTORY/PAST SURGICAL HISTORY:: All Active Problems. Autistic behavior (Acute). Acute appendicitis (Acute) PREVIOUS FUNCTIONAL STATUS/SOCIAL/FAMILY SUPPORTS:: Donato lives in an apartment in [facility] with his mother, Heena, and his sister, Diandra. His mother is a lso his guardian. 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 Per his mother, Donato requires constant support from herself, his sister, or [employer] staff. CURRENT FUNCTIONAL STATUS:: Donato was sleeping post surgically when CM met with his mother, Heena, who was in the room. She stated that she will remain there as his support, as he cannot be left alone, or he will become dysregulated. She described their family dynamic, which she reported as unique, but they all support each other in the household. She stated that per MD, Donato will likely be ready for discharge tomorrow. CM will continue to follow. ADVANCE DIRECTIVES:: None on file. Has patient been provided with info about the portal/API?: Yes Did the patient sign up for the portal?: No CODE STATUS:: Full Code INSURANCE COVERAGE / FINANCIAL ISSUES:: [facility] CURRENT HOME/COMMUNITY SERVICES/EQUIPMENT:: [facility] [employer] [facility] support. PRIMARY CARE PHYSICIAN:: Tommy Marti POTENTIAL DISCHARGE NEEDS:: follow up appointments. PATIENT/FAMILY EDUCATION NEEDS:: Review discharge instructions and limitations with Donato and his mother, discussion of self care needs including ask me three. ANTICIPATED BARRIERS TO DISCHARGE:: None identified. TRANSPORTATION:: Via private vehicle by his mother. PLAN:: Donato will return home when medically cleared. He will follow up with his PCP and discharge plan of care. He will be driven home via private vehicle by family. CM will continue to follow.
[2021-06-26] MEDS: Enoxaparin 40 MG/0.4 ML SYR SC (20:08)
[2021-06-27 01:03] VITALS: O2SAT 96
[2021-06-27] MEDS: PIPERACILLIN/TAZO 3.375 GM in Normal Saline 50 ML IVPB ×4 (01:52→20:46)
[2021-06-27] MEDS: Normal Saline Flush 10 ML SYR IVP ×5 (01:52→23:47)
[2021-06-27] MEDS: MORPHine 2 MG/ML SYR IVP (06:17)
[2021-06-27 06:54] LABS: Abs Immature Grans 0.06 10^3/uL (0.0-0.06); Absolute Basophil Count 0.02 10^3/uL (0.0-0.2); Absolute Eosinophil Count 0.03 10^3/uL (0.0-0.7); Absolute Monocyte Count 1.16 10^3/uL (0.1-0.8); Absolute Neutrophil Count 12.77 10^3/uL (1.2-6.7); Basophils % 0.1; Eosinophils % 0.2; HCT 37.7 % (40.0-50.0); HGB 11.9 g/dL (13.5-17.5); Immature Grans % 0.4; Lymphocytes % 11.9; MCH 29.9 pg (27.0-33.0); MCHC 31.6 % (32.0-36.0); MCV 94.7 fL (80-95); MPV 9.8 fL (8.0-11.0); Monocytes % 7.3; Neutrophils % 80.1; Nucleated RBC 0 %; Platelet Count 219 10^3/uL (130-400); RBC 3.98 10^6/uL (4.36-5.78); RDW 12.5 % (11.8-14.1); RDW-SD 43.8 fL; WBC 15.94 10^3/uL (4.4-10.8)
[2021-06-27 07:10] LABS: BUN 7 mg/dL (7-18); CREATININE 0.8 mg/dL (0.70-1.30); Calcium 8.6 mg/dL (8.5-10.1); Chloride 103 mmol/L (98-107); Glucose 110 mg/dL (74-106); Potassium 3.9 mmol/L (3.5-5.1); Sodium 140 mmol/L (136-145)
[2021-06-27 07:35] VITALS: BP 138/87; PULSE 74; RESP 16; TEMP 37.5; O2SAT 99
[2021-06-27] MEDS: Pantoprazole 40 MG VIAL IVP (08:23)
[2021-06-27] MEDS: ACETAMINOPHEN 1,000 MG/100 ML BTL 400 MG IVPB ×3 (08:23→23:45)
[2021-06-27] MEDS: Ketorolac 15 MG/ML VIAL IVP ×2 (08:26→23:46)
[2021-06-27] MEDS: Lactated Ringers 1,000 ML 125 ML IV (09:50)
--- NOTE | 2021-06-27 14:51 | W.PM.PROGNOT ---
Date of Service Date of service: 06/27/21 Time of Service: 10:57 Assessment and Plan Assessment and plan (1) Acute appendicitis: Status: Acute Assessment and plan: -Continue post op diet as tolerated -Continue IV Zosyn while inpatient -DC IVF -SQ Lovenox for DVT ppx -IV Protonix for GI ppx -Repeat labs in AM, possible DC home tomorrow as long as labs imprive and patient does not have fevers. Patient and mother both understand and agree to the plan. Rx sent to [facility] for PO abx and analgesia. (2) Autistic behavior: Status: Acute Subjective Subjective Patient reports: no new complaints, tolerating a regular diet, flatus and no bowel movement; denies nausea or vomiting Exam Const General: cooperative, healthy appearing and acute distress (slightly uncomfortable) mild Nutritional Appearance: average body habitus Limitations: other limitations (intellectual disability) [facility] Head: normal to inspection, normocephalic and atraumatic Resp Effort & Inspection: normal respiratory effort, able to speak in complete sentences, no audible wheezes, no cough and no respiratory distress Cardio Rate: tachycardic Rhythm: regular rhythm GI Inspection: normal to inspection, non-distended, incision (intact with skin glue) and obesity Palpation: soft and tender (appropriate post op) Percussion: normal to percussion Neuro General: patient alert, patient awake and patient oriented x3 Cognition: abnormal cognition Speech: speech normal Objective Last Vital Signs Temp 99.5 F 06/27/21 07:35 Pulse 74 06/27/21 07:35 Resp 16 06/27/21 07:35 BP 138/87 06/27/21 07:35 Pulse Ox 99 06/27/21 07:35 Laboratory Results - last 24 hr 06/27/21 06/27/21 06:20 06:20 WBC 15.94 H RBC 3.98 L Hgb 11.9 L Hct 37.7 L MCV 94.7 MCH 29.9 MCHC 31.6 L RDW 12.5 Plt Count 219 MPV 9.8 Immature Gran % 0.4 Neutrophils % 80.1 Lymphocytes % 11.9 Monocytes % 7.3 Eosinophils % 0.2 Basophils % 0.1 Nucleated RBC % 0 Absolute Neutrophils 12.77 H Absolute Lymphocytes 1.90 Absolute Monocytes 1.16 H Absolute Eosinophils 0.03 Absolute Basophils 0.02 Sodium 140 Potassium 3.9 Chloride 103 Carbon Dioxide 31.0 Anion Gap 6.0 BUN 7 Creatinine 0.8 Estimated GFR/1.73 m2 >= 60.00 Glucose 110 H Calcium 8.6
[2021-06-27] MEDS: Enoxaparin 40 MG/0.4 ML SYR SC (20:46)
[2021-06-27 23:00] VITALS: BP 151/82; PULSE 109; RESP 17; TEMP 39.3; O2SAT 90
[2021-06-27 23:45] VITALS: TEMP 39.6
[2021-06-27 23:50] VITALS: O2SAT 94
[2021-06-28] VITALS (9 sets, daily range): BP systolic 132–163; BP diastolic 76–97; PULSE 65–103; RESP 16–22; TEMP 36.8–38.9; O2SAT 92–98
[2021-06-28] MEDS: PIPERACILLIN/TAZO 3.375 GM in Normal Saline 50 ML IVPB ×4 (01:11→20:31)
[2021-06-28 06:49] LABS: Abs Immature Grans 0.05 10^3/uL (0.0-0.06); Absolute Basophil Count 0.03 10^3/uL (0.0-0.2); Absolute Monocyte Count 1.09 10^3/uL (0.1-0.8); Absolute Neutrophil Count 10.59 10^3/uL (1.2-6.7); Basophils % 0.2; Eosinophils % 0.7; HCT 38.7 % (40.0-50.0); HGB 12.1 g/dL (13.5-17.5); Immature Grans % 0.4; Lymphocytes % 12.9; MCH 29.4 pg (27.0-33.0); MCHC 31.3 % (32.0-36.0); MCV 94.2 fL (80-95); MPV 9.8 fL (8.0-11.0); Neutrophils % 77.8; Nucleated RBC 0 %; Platelet Count 283 10^3/uL (130-400); RBC 4.11 10^6/uL (4.36-5.78); RDW 12.6 % (11.8-14.1); RDW-SD 43.8 fL; WBC 13.61 10^3/uL (4.4-10.8)
[2021-06-28 07:02] LABS: Absolute Lymphocyte Count 1.76 10^3/uL (1.2-3.4)
[2021-06-28] MEDS: ACETAMINOPHEN 1,000 MG/100 ML BTL 400 MG IVPB (07:03)
[2021-06-28] MEDS: Normal Saline Flush 10 ML SYR IVP ×4 (07:04→20:21)
[2021-06-28 07:32] LABS: BUN 10 mg/dL (7-18); CREATININE 0.9 mg/dL (0.70-1.30); Calcium 8.9 mg/dL (8.5-10.1); Chloride 102 mmol/L (98-107); Glucose 102 mg/dL (74-106); Magnesium 2.1 mg/dL (1.8-2.4); Potassium 3.9 mmol/L (3.5-5.1); Sodium 140 mmol/L (136-145)
[2021-06-28] MEDS: Pantoprazole 40 MG VIAL IVP (09:05)
[2021-06-28] MEDS: MORPHine 2 MG/ML SYR IVP (09:06)
--- NOTE | 2021-06-28 09:43 | W.PM.PROGNOT ---
Date of Service Date of service: 06/28/21 Time of Service: 08:00 Assessment and Plan Assessment and plan (1) Acute appendicitis: Status: Acute Assessment and plan: -Continue post op diet as tolerated -Continue IV Zosyn while inpatient -Continue ambulation and activity OOB -SQ Lovenox for DVT ppx -IV Protonix for GI ppx WBC count continues to be elevated, fevers this morning. Will continue IV antibiotics for another day. (2) Autistic behavior: Status: Acute Subjective Subjective Interval history since last seen: Arrive with patient resting comfortably in bed. His caregiver is in the room also. Patient did not converse with this provider. Exam Const General: cooperative and comfortable Orientation: alert Resp Effort & Inspection: normal respiratory effort, no audible wheezes and no cough GI Inspection: normal to inspection Palpation: soft, no guarding and tender in the RLQ Other: incision sites are intact. Mild ecchymosis around umbilical site. Objective Last Vital Signs Temp 37.1 C 06/28/21 09:20 Pulse 81 06/28/21 07:16 Resp 17 06/28/21 07:16 BP 151/91 H 06/28/21 07:16 Pulse Ox 95 06/28/21 07:16 Laboratory Results - last 24 hr 06/28/21 06/28/21 06:13 06:13 WBC 13.61 H RBC 4.11 L Hgb 12.1 L Hct 38.7 L MCV 94.2 MCH 29.4 MCHC 31.3 L RDW 12.6 Plt Count 283 MPV 9.8 Immature Gran % 0.4 Neutrophils % 77.8 Lymphocytes % 12.9 Monocytes % 8.0 Eosinophils % 0.7 Basophils % 0.2 Nucleated RBC % 0 Absolute Neutrophils 10.59 H Absolute Lymphocytes 1.76 Absolute Monocytes 1.09 H Absolute Eosinophils 0.10 Absolute Basophils 0.03 Sodium 140 Potassium 3.9 Chloride 102 Carbon Dioxide 32.0 Anion Gap 6.0 BUN 10 Creatinine 0.9 Estimated GFR/1.73 m2 >= 60.00 Glucose 102 Calcium 8.9 Magnesium 2.1
[2021-06-28] MEDS: Ketorolac 15 MG/ML VIAL IVP ×2 (12:00→20:22)
[2021-06-28] MEDS: Acetaminophen 325 MG TAB 650 MG PO (16:07)
[2021-06-28] MEDS: traMADol 50 MG TAB PO (16:08)
--- NOTE | 2021-06-28 17:42 | CMPROGNOTE_ITS ---
- If Service Date Differs Date of service: 06/28/21 Time of Service: 17:42 Care Management Progress Note S/O: Donato was sitting up in his chair when CM met with him and his mother, Heena. Donato has been up and walking today, despite having a fever overnight. His mother stated that she expected to return home today, but the fever may delay his discharge. Blood cultures are pending. Heena stated that her daughter has been supportive from home, and will help Donato when he is discharged as well. She does not anticipate the need for any services upon discharge. CM will continue to follow. A: Donato is a 31 year old male admitted to [facility] on 06/25/21 with acute appendicitis. P: Donato will return home when medically cleared. He will follow up with his PCP and discharge plan of care. He will be driven home via private vehicle by family. CM will continue to follow.
[2021-06-28] MEDS: Enoxaparin 40 MG/0.4 ML SYR SC (20:33)
[2021-06-28 21:21] LABS: Bilirubin Negative (Negative); Blood Negative (Negative); Clarity Clear (Clear); Glucose Negative (Negative); Ketones Trace mg/dL (Negative); Leukocyte Esterase Negative (Negative); Nitrite Negative (Negative); Urobilinogen 0.2 EU/dL (Up TO 0.2); pH 8.5 (5-8)
[2021-06-29] MEDS: PIPERACILLIN/TAZO 3.375 GM in Normal Saline 50 ML IVPB ×4 (01:49→19:37)
[2021-06-29] MEDS: Ketorolac 15 MG/ML VIAL IVP ×3 (05:17→19:37)
[2021-06-29] MEDS: Normal Saline Flush 10 ML SYR IVP ×4 (05:17→19:37)
[2021-06-29 06:48] LABS: Abs Immature Grans 0.06 10^3/uL (0.0-0.06); Absolute Basophil Count 0.03 10^3/uL (0.0-0.2); Absolute Lymphocyte Count 1.21 10^3/uL (1.2-3.4); Absolute Monocyte Count 1.13 10^3/uL (0.1-0.8); Absolute Neutrophil Count 10.29 10^3/uL (1.2-6.7); Basophils % 0.2; Eosinophils % 0.9; HCT 34.9 % (40.0-50.0); HGB 11.2 g/dL (13.5-17.5); Immature Grans % 0.5; Lymphocytes % 9.4; MCH 29.6 pg (27.0-33.0); MCHC 32.1 % (32.0-36.0); MCV 92.1 fL (80-95); MPV 9.2 fL (8.0-11.0); Monocytes % 8.8; Neutrophils % 80.2; Nucleated RBC 0 %; Platelet Count 287 10^3/uL (130-400); RBC 3.79 10^6/uL (4.36-5.78); RDW 12.7 % (11.8-14.1); RDW-SD 42.9 fL; WBC 12.83 10^3/uL (4.4-10.8)
[2021-06-29 06:56] LABS: Absolute Eosinophil Count 0.12 10^3/uL (0.0-0.7)
[2021-06-29 07:19] VITALS: BP 139/83; PULSE 79; RESP 18; TEMP 37.5; O2SAT 90
--- NOTE | 2021-06-29 07:23 | W.PM.PROGNOT ---
Date of Service Date of service: 06/29/21 Time of Service: 07:23 Assessment and Plan Assessment and plan (1) Acute appendicitis: Status: Acute Assessment and plan: -Continue post op diet as tolerated -Continue IV Zosyn while inpatient,marginal improvement in WBC count. 12.83 today -Fevers continued yesterday afternoon. No fevers overnight - (+) BM yesterday. -Continue ambulation and activity OOB. Discussion with both the patient and his mother regarding the importance of ambulation throughout the day. -SQ Lovenox for DVT ppx -IV Protonix for GI ppx -UA unremarkable Awaiting CXR later today. (2) Autistic behavior: Status: Acute Subjective Subjective Interval history since last seen: Arrive with patient resting comfortably in bed. Patient denies having any abdominal pain. Patient's mother is present and states the patient did ambulate some yesterday. Exam Const General: cooperative, healthy appearing and comfortable Orientation: alert and oriented x3 Resp Effort & Inspection: normal respiratory effort, no audible wheezes and no cough GI Inspection: normal to inspection Palpation: soft, no guarding and tender in the RLQ Other: Ecchymosis noted around umbilical port site. Objective Last Vital Signs Temp 37.5 C 06/29/21 07:19 Pulse 79 06/29/21 07:19 Resp 18 06/29/21 07:19 BP 139/83 06/29/21 07:19 Pulse Ox 90 L 06/29/21 07:19 Laboratory Results - last 24 hr 06/28/21 06/28/21 06/29/21 06:13 19:05 06:35 WBC 12.83 H RBC 3.79 L Hgb 11.2 L Hct 34.9 L MCV 92.1 MCH 29.6 MCHC 32.1 RDW 12.7 Plt Count 287 MPV 9.2 Immature Gran % 0.5 Neutrophils % 80.2 Lymphocytes % 9.4 Monocytes % 8.8 Eosinophils % 0.9 Basophils % 0.2 Nucleated RBC % 0 Absolute Neutrophils 10.29 H Absolute Lymphocytes 1.21 Absolute Monocytes 1.13 H Absolute Eosinophils 0.12 Absolute Basophils 0.03 Sodium 140 Potassium 3.9 Chloride 102 Carbon Dioxide 32.0 Anion Gap 6.0 BUN 10 Creatinine 0.9 Estimated GFR/1.73 m2 >= 60.00 Glucose 102 Calcium 8.9 Magnesium 2.1 Urine Color Yellow Urine Clarity Clear Urine pH 8.5 H Ur Specific [place] 1.020 Urine Protein Negative Urine Ketones Trace H Urine Blood Negative Urine Nitrite Negative Urine Bilirubin Negative Urine Urobilinogen 0.2 Ur Leukocyte Esterase Negative Urine Glucose Negative
--- NOTE | 2021-06-29 07:30 | DI.RAD_ITS ---
Exam(s) XR CHEST 2V PA LATERAL EXAM: XR CHEST 2V PA LATERAL CLINICAL HISTORY: Fevers TECHNIQUE: 2D digital imaging was performed of the chest. Two images were obtained. PA and lateral views were obtained. COMPARISON: CR,RF BARIUM SWALLOW W PA LAT CXR from 04/06/2016 FINDINGS: Poor inspiration. MEDIASTINUM: Normal. HEART: Normal. PULMONARY VASCULATURE: Normal. LUNGS: There is linear atelectasis in left lung base. Densities are seen in the left lung base medial ly which may represent a pneumonia. The right lung appears clear. PLEURAL SPACE: No pleural effusion or pneumothorax. BONE:Within normal limits for the patient's age. OTHER FINDINGS:Normal. IMPRESSION: Question of a left basilar infiltrate. DATA REPOSITORY: RADIATION DOSE DELIVERED:
[2021-06-29 07:59] VITALS: O2SAT 90
--- NOTE | 2021-06-29 09:06 | PDOC.CMPRO ---
- If Service Date Differs Date of service: 06/29/21 Time of Service: 09:06 Care Management Progress Note S/O: Donato was sitting up in bed when CM met with him and his mother, Heena. Donato stated that he is doing OK and that the pain is better. Heena informed CM that they have been walking in the halls.. Per Heena, the surgical PA saw him this morning and stated that he would need to stay another night as his WBC is still elevated and he had a fever last evening. Dr. Barrett also indicated to CM that Donato will need to remain hospitalized, likely until unless he shows major improvement tomorrow. A: Donato is a 31 year old male admitted to [facility] on 06/25/21 with acute appendicitis. P: Donato will return home when medically cleared. He will follow up with his PCP, surgeon and discharge plan of care. He will be driven home via private vehicle by family. CM will continue to follow and support Donato and his discharge needs.
[2021-06-29] MEDS: Pantoprazole 40 MG VIAL IVP (09:20)
[2021-06-29 14:11] VITALS: TEMP 37.7
--- NOTE | 2021-06-29 15:13 | NUR.NOTE ---
Nursing Note: [id number]: [facility] request of Dr. Barrett to see if pt's mother could ride in ambulance with pt to [facility] if necessary for IR procedure. per [facility], mother can ride with pt. pt's mother is vaccinated and boosted per her report.
[2021-06-29] MEDS: Normal Saline 500 ML 30 ML IV (15:18)
[2021-06-29 15:30] VITALS: BP 143/85; PULSE 82; RESP 17; TEMP 37.4; O2SAT 97
[2021-06-29 16:42] LABS: Bilirubin Negative (Negative); Blood Negative (Negative); Clarity Clear (Clear); Glucose Negative (Negative); Ketones Negative (Negative); Leukocyte Esterase Negative (Negative); Nitrite Negative (Negative); Specific Gravity 1.015 (1.005-1.025); Urobilinogen 0.2 EU/dL (Up TO 0.2)
[2021-06-29] MEDS: Enoxaparin 40 MG/0.4 ML SYR SC (19:37)
[2021-06-30 00:05] VITALS: BP 130/70; PULSE 84; RESP 20; TEMP 37.6; O2SAT 96
[2021-06-30] MEDS: PIPERACILLIN/TAZO 3.375 GM in Normal Saline 50 ML IVPB ×4 (03:00→20:05)
[2021-06-30] MEDS: Ketorolac 15 MG/ML VIAL IVP (04:43)
[2021-06-30 05:13] VITALS: BP 132/85; PULSE 75; RESP 16; TEMP 36.8; O2SAT 93
[2021-06-30 06:33] LABS: Abs Immature Grans 0.09 10^3/uL (0.0-0.06); Absolute Basophil Count 0.04 10^3/uL (0.0-0.2); Absolute Lymphocyte Count 1.59 10^3/uL (1.2-3.4); Absolute Monocyte Count 1.09 10^3/uL (0.1-0.8); Basophils % 0.3; HCT 36.5 % (40.0-50.0); HGB 11.5 g/dL (13.5-17.5); Immature Grans % 0.7; MCH 29.5 pg (27.0-33.0); MCHC 31.5 % (32.0-36.0); MCV 93.6 fL (80-95); Monocytes % 8.2; Neutrophils % 76.8; Nucleated RBC 0 %; Platelet Count 306 10^3/uL (130-400); RDW 12.6 % (11.8-14.1); RDW-SD 43.4 fL; WBC 13.26 10^3/uL (4.4-10.8)
[2021-06-30 06:38] LABS: Absolute Eosinophil Count 0.27 10^3/uL (0.0-0.7); Absolute Neutrophil Count 10.18 10^3/uL (1.2-6.7)
--- NOTE | 2021-06-30 07:20 | PGE_ITS ---
Date of Service Date of service: 06/30/21 Time of Service: 07:20 Assessment and Plan Assessment and plan (1) Acute appendicitis: Status: Acute Assessment and plan: -Regular diet -Continue IV Zosyn, WBC increased to 13.26 this morning, will order ABD CT scan for tomorrow. -Low grade fevers through the afternoon and night. -Continue ambulation and activity OOB. Strongly encouraged frequent ambulation throughout the day. -SQ Lovenox for DVT ppx -IV Protonix for GI ppx -UA unremarkable P// ABD CT scan tomorrow to r/o abscess. (2) Autistic behavior: Status: Acute Subjective Subjective Interval history since last seen: Arrive with the patient awake and sitting up in bed. He denies having any pain at the moment. He points to his RLQ and mid/lower abdomen as the locations of his pain, when he has it. His mother is present and expressed concerns that he continues to have a low appetite. Low grade fevers through the night. Exam Const General: cooperative, healthy appearing and comfortable Orientation: alert and oriented x3 Resp Effort & Inspection: normal respiratory effort, no audible wheezes and no cough GI Inspection: normal to inspection Palpation: soft, no guarding and tender in the RLQ Objective Last Vital Signs Temp 36.8 C 06/30/21 05:13 Pulse 75 06/30/21 05:13 Resp 16 06/30/21 05:13 BP 132/85 06/30/21 05:13 Pulse Ox 93 06/30/21 05:13 Laboratory Results - last 24 hr 06/29/21 06/30/21 16:20 06:20 WBC 13.26 H RBC 3.90 L Hgb 11.5 L Hct 36.5 L MCV 93.6 MCH 29.5 MCHC 31.5 L RDW 12.6 Plt Count 306 MPV 9.0 Immature Gran % 0.7 Neutrophils % 76.8 Lymphocytes % 12.0 Monocytes % 8.2 Eosinophils % 2.0 Basophils % 0.3 Nucleated RBC % 0 Absolute Neutrophils 10.18 H Absolute Lymphocytes 1.59 Absolute Monocytes 1.09 H Absolute Eosinophils 0.27 Absolute Basophils 0.04 Urine Color Yellow Urine Clarity Clear Urine pH 8.0 Ur Specific [place] 1.015 Urine Protein Negative Urine Ketones Negative Urine Blood Negative Urine Nitrite Negative Urine Bilirubin Negative Urine Urobilinogen 0.2 Ur Leukocyte Esterase Negative Urine Glucose Negative
[2021-06-30 07:30] VITALS: BP 137/88; PULSE 71; RESP 17; TEMP 36.4; O2SAT 93
[2021-06-30] MEDS: Pantoprazole 40 MG VIAL IVP (08:15)
[2021-06-30] MEDS: Normal Saline Flush 10 ML SYR IVP ×2 (08:15→20:06)
--- NOTE | 2021-06-30 13:42 | PDOC.CMPRO ---
- If Service Date Differs Date of service: 06/30/21 Time of Service: 13:42 Care Management Progress Note S/O: Donato was busy with his RN when CM attempted to meet with him today. Per report, he will go to [facility] tomorrow for an ABD CT scan to r/o abscess that cannot be performed at [facility]. His mother will travel with him in the ambulance to help to keep him regulated. He remains on IV antibiotics, and his WBC continues to be elevated. He has been walking around in the halls with staff, which is encouraged. CM will continue to follow. A: Donato is a 31 year old male admitted to [facility] on 06/25/21 with acute appendicitis. P: Donato will return home when medically cleared. He will follow up with his PCP, surgeon and discharge plan of care. He will be driven home via private vehicle by family. CM will continue to follow and support Donato and his discharge needs.
[2021-06-30] MEDS: traMADol 50 MG TAB PO (15:16)
[2021-06-30 15:30] VITALS: BP 132/83; PULSE 82; RESP 17; TEMP 37.2; O2SAT 99
[2021-06-30] MEDS: Acetaminophen 325 MG TAB 650 MG PO (18:13)
[2021-06-30 18:14] VITALS: TEMP 37.1
[2021-06-30] MEDS: Enoxaparin 40 MG/0.4 ML SYR SC (20:05)
--- NOTE | 2021-07-01 | DI.CT_ITS ---
Exam(s) CT ABDOMEN PELVIS W EXAM: CT ABDOMEN PELVIS W CLINICAL HISTORY: leukocytosis and fevers TECHNIQUE: COMPARISON: CT CT ABDOMEN PELVIS W from 06/25/2021 FINDINGS: CT examination of the abdomen and pelvis was performed with bolus infusion of 100 cc of Omnipaque 350 . Images obtained through the lung bases show small bilateral pleural effusions and areas of atelecta sis. There is free fluid in the peritoneal space in the right upper quadrant. There are areas of minimal fluid collection in the pelvis. A couple of more focal fluid collections are noted adjacent to the c ecum, 1 in the appendiceal bed measuring roughly 2 x 3 x 3 cm and the other adjacent to the anterolat eral aspect of the cecum measuring about 4 x 2 x 2 cm. No clearly defined enhancing warner present to confirm abscess formation, however early phlegmon or abscess formation should be considered consider ing the history of prior appendicitis.. The liver appears normal with no evidence of a focal mass. Spleen is unremarkable in appearance.. Gallbladder and bile ducts are unremarkable. Pancreas is unremarkable in appearance. Adrenals appear normal bilaterally. Kidneys appear normal with no evidence of renal mass, hydronephrosis, or nephrolithiasis. Unremarkab le bladder. There is no evidence of abdominal or pelvic adenopathy. Abdominal aorta is of normal diameter and no abnormality is seen involving major visceral branches.. No evidence diverticulitis or bowel obstruction. No significant abdominal wall hernia seen. Impression: Free fluid in the peritoneal space as described above with associated small bilateral pleural effusio ns and atelectasis. Possible early abscess formation with two fluid collections adjacent to the cecu m as described above. Abscess is not clearly confirmed at this time. Follow-up CT and close clinica l follow-up recommended.. RADIATION DOSE DELIVERED: Total DLP Total DLP !Error CTDIvol DATA REPOSITORY: All CT scans at this facility are submitted to the National Radiology Data Registry (NRDR) Dose Index Registry (DIR) with the [employer] (ACR). RADIATION OPTIMIZATION: All CT scans at this facility use at least one of these dose optimization te chniques: automated exposure control; mA and/or kV adjustment per patient size (includes targeted exa ms where dose is matched to clinical indication); or iterative reconstruction.
[2021-07-01 00:35] VITALS: BP 130/77; PULSE 70; RESP 18; TEMP 37.2; O2SAT 98
[2021-07-01] MEDS: PIPERACILLIN/TAZO 3.375 GM in Normal Saline 50 ML IVPB ×4 (02:09→20:04)
[2021-07-01 07:06] LABS: Abs Immature Grans 0.12 10^3/uL (0.0-0.06); Absolute Basophil Count 0.07 10^3/uL (0.0-0.2); Absolute Lymphocyte Count 1.71 10^3/uL (1.2-3.4); Absolute Monocyte Count 0.94 10^3/uL (0.1-0.8); Absolute Neutrophil Count 9.02 10^3/uL (1.2-6.7); Basophils % 0.6; Eosinophils % 2.9; HCT 37.5 % (40.0-50.0); HGB 11.6 g/dL (13.5-17.5); MCH 29.2 pg (27.0-33.0); MCHC 30.9 % (32.0-36.0); MCV 94.5 fL (80-95); MPV 9.2 fL (8.0-11.0); Monocytes % 7.7; Neutrophils % 73.8; Nucleated RBC 0 %; Platelet Count 386 10^3/uL (130-400); RBC 3.97 10^6/uL (4.36-5.78); RDW 12.5 % (11.8-14.1); RDW-SD 43.7 fL; WBC 12.22 10^3/uL (4.4-10.8)
[2021-07-01 07:10] LABS: Absolute Eosinophil Count 0.35 10^3/uL (0.0-0.7)
[2021-07-01] MEDS: Ketorolac 15 MG/ML VIAL IVP (07:42)
[2021-07-01] MEDS: Pantoprazole 40 MG VIAL IVP (07:42)
[2021-07-01] MEDS: Normal Saline Flush 10 ML SYR IVP (07:42)
[2021-07-01 08:35] VITALS: BP 144/87; PULSE 71; RESP 16; TEMP 36.6; O2SAT 96
[2021-07-01] MEDS: Omnipaque 350 MG/ML 100 ML BTL IJ (09:03)
[2021-07-01] MEDS: traMADol 50 MG TAB PO (10:20)
--- NOTE | 2021-07-01 12:55 | W.PM.PROGNOT ---
Date of Service Date of service: 07/01/21 Time of Service: 07:30 Assessment and Plan Assessment and plan (1) Acute appendicitis: Status: Acute Assessment and plan: -Continue IV Zosyn -Continue ambulation and activity OOB. Strongly encouraged frequent ambulation throughout the day. -SQ Lovenox for DVT ppx -IV Protonix for GI ppx Awaiting CT scan results pt seen and examined. pt is an unreliable historian. He has not had a BM in 48hrs. He did receive Miralax today. RN's have been making sure he walks 2-3x's shift (he still had atalectasis on CT) Ct did show some non specific fluid collections. Will try changing abx, and see if this does not improve his s/s. No fevers for 48hrs. encourage walking/pulm toilet (2) Autistic behavior: Status: Acute Subjective Subjective Interval history since last seen: Patient reports he is feeling okay today, but he continues to have lower abdominal pain. Exam Const General: cooperative and comfortable Orientation: alert and oriented x3 Resp Effort & Inspection: normal respiratory effort, no audible wheezes and no cough GI Inspection: normal to inspection and non-distended Palpation: soft, no guarding and tender suprapubicly Objective Last Vital Signs Temp 36.6 C 07/01/21 08:35 Pulse 71 07/01/21 08:35 Resp 16 07/01/21 08:35 BP 144/87 H 07/01/21 08:35 Pulse Ox 96 07/01/21 08:35 Laboratory Results - last 24 hr 07/01/21 06:38 WBC 12.22 H RBC 3.97 L Hgb 11.6 L Hct 37.5 L MCV 94.5 MCH 29.2 MCHC 30.9 L RDW 12.5 Plt Count 386 MPV 9.2 Immature Gran % 1.0 Neutrophils % 73.8 Lymphocytes % 14.0 Monocytes % 7.7 Eosinophils % 2.9 Basophils % 0.6 Nucleated RBC % 0 Absolute Neutrophils 9.02 H Absolute Lymphocytes 1.71 Absolute Monocytes 0.94 H Absolute Eosinophils 0.35 Absolute Basophils 0.07
[2021-07-01 15:18] VITALS: BP 132/75; PULSE 72; RESP 16; TEMP 36.1; O2SAT 95
[2021-07-01] MEDS: ERTAPENEM 1 GM in Normal Saline 50 ML IVPB (15:21)
--- NOTE | 2021-07-01 15:50 | PDOC.CMPRO ---
- If Service Date Differs Date of service: 07/01/21 Time of Service: 15:51 Care Management Progress Note S/O: Donato had a CT this morning to determine if he has an abscess forming, which was unclear. If he has an abscess that requires draining, he will likely be sent to [facility] for that procedure, as it would not be done at [facility]. Donato was sleeping when CM met with his mother, who was in the room. She stated that she was aware that they may have to go to [facility], and they are comfortable with that plan. He remains on IV abx, and his WBC is lower today than yesterday. CM will continue to follow. A: Donato is a 31 year old male admitted to [facility] on 06/25/21 with acute appendicitis. P: Donato will return home when medically cleared. He will follow up with his PCP, surgeon and discharge plan of care. He will be driven home via private vehicle by family. CM will continue to follow and support Donato and his discharge needs.
[2021-07-01] MEDS: Enoxaparin 40 MG/0.4 ML SYR SC (20:04)
[2021-07-01 22:53] VITALS: RESP 12
[2021-07-01 23:05] VITALS: BP 178/83; PULSE 83; RESP 17; TEMP 36.6; O2SAT 97
[2021-07-02 01:45] VITALS: BP 144/84; TEMP 36.2
[2021-07-02] MEDS: PIPERACILLIN/TAZO 3.375 GM in Normal Saline 50 ML IVPB ×2 (02:04→09:38)
[2021-07-02] MEDS: Normal Saline Flush 10 ML SYR IVP ×3 (02:07→14:38)
[2021-07-02 07:32] VITALS: BP 137/88; PULSE 68; RESP 12; TEMP 37; O2SAT 96
[2021-07-02] MEDS: Pantoprazole 40 MG VIAL IVP (09:37)
[2021-07-02] MEDS: Normal Saline 500 ML 30 ML IV (09:38)
--- NOTE | 2021-07-02 11:11 | PGE_ITS ---
Date of Service Date of service: 07/02/21 Time of Service: 13:00 Assessment and Plan Assessment and plan (1) Acute appendicitis: Status: Acute Assessment and plan: -ABX changed to Invanz, has [address] not large enough to drain -Continue ambulation and activity OOB. Strongly encouraged frequent ambulation throughout the day. -SQ Lovenox for DVT ppx -IV Protonix for GI ppx -Repeat CBC in AM -If continues to be afebrile and have stable labs will condider DC home tomorrow or Monday on PO ABX with follow up outpatient CT scan prior to office apt -Having daily BM's, PRN miralax -Incentive spirometry needs to be encouraged (2) Autistic behavior: Status: Acute Assessment and plan: -Stable, behavior has been appropriate and mother remains at patient's bedside for assistance Subjective Subjective Patient reports: no new complaints, tolerating a regular diet and bowel movement; denies nausea or vomiting Exam Const General: cooperative, healthy appearing, comfortable and no acute distress Resp Effort & Inspection: normal respiratory effort, no audible wheezes, no cough and no respiratory distress GI Inspection: normal to inspection, non-distended and incision (clean dry and int act with skin glue) Palpation: soft, no guarding and tender suprapubicly (mild) Percussion: normal to percussion Skin General skin exam: no rashes or lesions noted Neuro General: patient alert, patient awake and patient oriented x3 Objective Last Vital Signs Temp 98.6 F 07/02/21 07:32 Pulse 68 07/02/21 07:32 Resp 12 07/02/21 07:32 BP 137/88 07/02/21 07:32 Pulse Ox 96 07/02/21 07:32
--- NOTE | 2021-07-02 11:15 | PDOC.CMPRO ---
- If Service Date Differs Date of service: 07/02/21 Time of Service: 11:15 Care Management Progress Note S/O: Donato was sitting up in bed eating when CM met with him. His mother was in the room as well. His mother, Heena, reported that per MD, he would likely not require transfer to [facility], and that his IV abx would be changed today. MD will observe him overnight on this new abx course, and may be able to transition him to oral abx over the weekend, to prepare for discharge. They are comfortable with the plan. CM will continue to follow. A: Donato is a 31 year old male admitted to [facility] on 06/25/21 with acute appendicitis. P: Donato will return home when medically cleared. He will follow up with his PCP, surgeon and discharge plan of care. He will be driven home via private vehicle by family. CM will continue to follow and support Donato and his discharge needs.
[2021-07-02] MEDS: ERTAPENEM 1 GM in Normal Saline 50 ML IVPB (14:38)
[2021-07-02 15:27] VITALS: BP 132/87; PULSE 85; RESP 15; TEMP 37.8; O2SAT 93
[2021-07-02] MEDS: Enoxaparin 40 MG/0.4 ML SYR SC (19:25)
[2021-07-02] MEDS: traMADol 50 MG TAB PO (21:12)
[2021-07-02 23:13] VITALS: BP 139/86; PULSE 79; RESP 20; TEMP 36.8; O2SAT 100
[2021-07-03 06:36] LABS: Abs Immature Grans 0.16 10^3/uL (0.0-0.06); Absolute Eosinophil Count 0.28 10^3/uL (0.0-0.7); Absolute Lymphocyte Count 2.67 10^3/uL (1.2-3.4); Basophils % 0.6; Eosinophils % 2.2; HCT 43.3 % (40.0-50.0); HGB 13.5 g/dL (13.5-17.5); Immature Grans % 1.3; Lymphocytes % 21.2; MCH 28.7 pg (27.0-33.0); MCHC 31.2 % (32.0-36.0); MCV 92.1 fL (80-95); MPV 8.8 fL (8.0-11.0); Monocytes % 6.4; Neutrophils % 68.3; Platelet Count 499 10^3/uL (130-400); RDW 12.1 % (11.8-14.1); RDW-SD 41.2 fL; WBC 12.58 10^3/uL (4.4-10.8)
[2021-07-03 06:40] LABS: Absolute Basophil Count 0.08 10^3/uL (0.0-0.2); Absolute Monocyte Count 0.81 10^3/uL (0.1-0.8); Absolute Neutrophil Count 8.59 10^3/uL (1.2-6.7)
[2021-07-03 06:56] LABS: ALT 51 U/L (16-63); AST 23 U/L (15-37); Albumin 3.2 g/dL (3.4-5.0); Alkaline Phosphatase 106 U/L (46-116); Anion Gap 8.2 mmol/L (3-11); BUN 12 mg/dL (7-18); Bilirubin, Total 0.3 mg/dL (0.2-1.0); CO2 28.8 mmol/L (21.0-32.0); Calcium 9.7 mg/dL (8.5-10.1); Chloride 101 mmol/L (98-107); Glucose 96 mg/dL (74-106); Magnesium 2.3 mg/dL (1.8-2.4); PHOSPHORUS 4.1 mg/dL (2.6-4.7); Potassium 4.7 mmol/L (3.5-5.1); Sodium 138 mmol/L (136-145); TSH (W/Ref FT4) 1.99 uIU/mL (0.36-3.74); Total Protein 8.5 g/dL (6.4-8.2)
[2021-07-03] MEDS: Pantoprazole 40 MG VIAL IVP (09:25)
[2021-07-03] MEDS: Normal Saline Flush 10 ML SYR IVP ×2 (09:25→14:22)
[2021-07-03 12:00] VITALS: RESP 20; O2SAT 97
[2021-07-03 12:22] VITALS: BP 142/90; PULSE 90; RESP 16; TEMP 36.8; O2SAT 97
--- NOTE | 2021-07-03 13:35 | W.PM.PROGNOT ---
Date of Service Date of service: 07/03/21 Time of Service: 15:30 Assessment and Plan Assessment and plan (1) Acute appendicitis: Status: Acute Assessment and plan: -ABX changed to Invanz, has [address] not large enough to drain -Repeat CT this week -Continue ambulation and activity OOB. Strongly encouraged frequent ambulation throughout the day. -SQ Lovenox for DVT ppx -IV Protonix for GI ppx -Labs reviewed, stable -Having daily BM's, PRN miralax -Incentive spirometry needs to be encouraged -Likely DC tomorrow after IV ABX dose to continue PO x7 days at home (2) Autistic behavior: Status: Acute Assessment and plan: -Stable, behavior has been appropriate and mother remains at patient's bedside for assistance Subjective Subjective Patient reports: no new complaints, tolerating a regular diet, bowel movement and afebrile; denies nausea or vomiting Exam Const General: cooperative, healthy appearing, comfortable and no acute distress Resp Effort & Inspection: normal respiratory effort, no audible wheezes, no cough and no respiratory distress GI Inspection: normal to inspection, non-distended and incision (clean dry and intact with skin glue) Palpation: soft, no guarding and tender suprapubicly (mild) Percussion: normal to percussion Skin General skin exam: erythema (below umbilicus, warm to touch, soft non-tender) Neuro General: patient alert, patient awake and patient oriented x3 Objective Last Vital Signs Temp 98.2 F 07/03/21 12:22 Pulse 90 07/03/21 12:22 Resp 16 07/03/21 12:22 BP 142/90 H 07/03/21 12:22 Pulse Ox 97 07/03/21 12:22 Laboratory Results - last 24 hr 07/03/21 07/03/21 06:15 06:15 WBC 12.58 H RBC 4.70 Hgb 13.5 Hct 43.3 MCV 92.1 MCH 28.7 MCHC 31.2 L RDW 12.1 Plt Count 499 H MPV 8.8 Immature Gran % 1.3 Neutrophils % 68.3 Lymphocytes % 21.2 Monocytes % 6.4 Eosinophils % 2.2 Basophils % 0.6 Nucleated RBC % 0.0 Absolute Neutrophils 8.59 H Absolute Lymphocytes 2.67 Absolute Monocytes 0.81 H Absolute Eosinophils 0.28 Absolute Basophils 0.08 Sodium 138 Potassium 4.7 Chloride 101 Carbon Dioxide 28.8 Anion Gap 8.2 BUN 12 Creatinine 1.0 Estimated GFR/1.73 m2 >= 60.00 Glucose 96 Calcium 9.7 Phosphorus 4.1 Magnesium 2.3 Total Bilirubin 0.3 AST 23 ALT 51 Alkaline Phosphatase 106 Total Protein 8.5 H Albumin 3.2 L TSH 1.99
[2021-07-03] MEDS: ERTAPENEM 1 GM in Normal Saline 50 ML IVPB (14:22)
[2021-07-03 15:06] VITALS: BP 134/88; PULSE 89; RESP 18; TEMP 36.9; O2SAT 97
[2021-07-03] MEDS: Enoxaparin 40 MG/0.4 ML SYR SC (19:54)
[2021-07-03 23:23] VITALS: BP 144/91; PULSE 76; RESP 16; TEMP 36.7; O2SAT 95
[2021-07-04 06:44] LABS: Abs Immature Grans 0.32 10^3/uL (0.0-0.06); Absolute Basophil Count 0.12 10^3/uL (0.0-0.2); Absolute Monocyte Count 0.77 10^3/uL (0.1-0.8); Absolute Neutrophil Count 8.65 10^3/uL (1.2-6.7); Basophils % 0.9; Eosinophils % 3.1; HCT 45.9 % (40.0-50.0); HGB 14.3 g/dL (13.5-17.5); Immature Grans % 2.4; Lymphocytes % 21.6; MCH 29.1 pg (27.0-33.0); MCHC 31.2 % (32.0-36.0); MCV 93.5 fL (80-95); MPV 8.8 fL (8.0-11.0); Monocytes % 5.9; Neutrophils % 66.1; Platelet Count 524 10^3/uL (130-400); RBC 4.91 10^6/uL (4.36-5.78); RDW-SD 41.8 fL; WBC 13.08 10^3/uL (4.4-10.8)
[2021-07-04 06:54] LABS: Anion Gap 9.2 mmol/L (3-11); BUN 13 mg/dL (7-18); CO2 29.8 mmol/L (21.0-32.0); CREATININE 0.9 mg/dL (0.70-1.30); Calcium 9.7 mg/dL (8.5-10.1); Chloride 101 mmol/L (98-107); Glucose 94 mg/dL (74-106); Potassium 4.8 mmol/L (3.5-5.1); Sodium 140 mmol/L (136-145)
[2021-07-04 07:01] LABS: Absolute Eosinophil Count 0.41 10^3/uL (0.0-0.7); Absolute Lymphocyte Count 2.83 10^3/uL (1.2-3.4)
[2021-07-04 08:39] VITALS: BP 150/99; PULSE 104; RESP 20; TEMP 36.7; O2SAT 95
[2021-07-04] MEDS: Pantoprazole 40 MG VIAL IVP (09:04)
[2021-07-04] MEDS: Normal Saline Flush 10 ML SYR IVP (09:04)
[2021-07-04 11:09] VITALS: BP 141/90
--- NOTE | 2021-07-04 11:29 | W.PM.DS.N ---
DS: Diagnosis Discharge Diagnosis (1) Acute appendicitis: Status: Acute Asessment and Plan: -POD #8 s/p laparoscopic appendectomy -Continue PO antibiotics at home -DC today after IV ABX dose -Tramadol, Tylenol/Motrin for analgesia -Regular diet as tolerated -Encourage ambulation/activity and incentive spirometer use at home (2) Autistic behavior: Status: Acute Discharge Plan Disposition Patient Disposition: HOME Condition: Stable Discharge Details Reason For Visit: Acute Appendicitis Admit Date/Time: 06/25/21 19:38 Admit Provider: Lashanda Cardenas Attending Provider: Lashanda Cardenas Primary Care Provider: Tommy Marti Hospital Course Hospital Course: Patient was admitted to the hospital after being found to have severe appendicitis on CT scan and a WBC count of 22k. He was started on IV antibiotics and taken to the operating room the following morning for laparoscopic appendectomy. He was kept on IV antibiotics based on the severity of infection as well as purulence encountered during surgery. Patient will be sent home on PO antibiotics at the time of discharge. On POD1 he was tolerating a regular diet and passing flatus awaiting bowel movement. Due to persistent leukocytosis, intermittent low grade fevers and colicky abdominal pain the decision was made to keep the patient until we were certain fevers would not return. A repeat CT scan was done on 07/01/21 and showed two small collections that were not amenable to percutaneous drainage. PO pain meds were started and IV fluids stopped in preparation for discharge home. He was started on Invanz 4 days prior to discharge and will continue PO antibiotics x7 days at home. Repeat CT scan should be done to ensure collections seen on CT 07/01/21 are resolving. Home Meds and New Rx's Prescriptions: New tramadol 50 mg Tablet 50 mg PO Q6H PRN PRNQty: 14 0RF levofloxacin 750 mg tablet 750 mg PO DAILY 7 Days Qty: 7 0RF metronidazole 500 mg tablet 500 mg PO TID Qty: 21 0RF Discharge Instructions Instructions: Laparoscopic Appendectomy (DC) Additional Instructions: RETURN TO WORK AFTER 07/12, LIGHT DUTY NO LIFTING >10 LBS MONITOR SKIN BELOW BELLY BUTTON TO ENSURE REDNESS IS NOT WORSENING MONITOR AT MINIMUM TWICE DAILY FOR FEVERS Referrals: Babs Chavez MD [ [facility] STAFF PHYSICIAN] - Activity:: no lifting >10 lbs 4 week Equipment/Supplies:: No Equipment Needed Diet:: As Tolerated Discharge Orders Discharge Orders: Discharge Order (Routine); Ordered 07/04/21 Ordered By: Lashanda Cardenas DS: Summary Time Spent with Patient providing and/or coordinating discharge services: Less than 30 minutes Status at Discharge Functional status at discharge: independent ambulation Overall status at discharge: patient is progressing back to baseline Mental Status: mental status grossly normal Speech and Movement: speech and movement normal Mood: congruent mood and euthymic mood Affect: indifferent and blunted Exam Const General: cooperative, healthy appearing, comfortable and no acute distress Resp Effort & Inspection: normal respiratory effort, no audible wheezes, no cough and no respiratory distress GI Inspection: normal to inspection, non-distended and incision (clean dry and intact with skin glue) Palpation: soft, no guarding and tender suprapubicly (mild) Percussion: normal to percussion Skin General skin exam: erythema (below umbilicus, warm to touch, soft non-tender) Neuro General: patient alert, patient awake and patient oriented x3 Psych Mental Status: mental status grossly normal Speech and Movement: speech and movement normal Mood: congruent mood and euthymic mood Affect: indifferent and blunted DS: Data Vitals/I&O Vitals and I&O: Vital Signs Temperature 98.1 F 07/04/21 08:39 Temperature Source Tympanic 07/04/21 08:39 Pulse 104 H 07/04/21 08:39 Pulse Rhythm Regular 07/04/21 10:24 Respiratory Rate 20 07/04/21 08:39 Respiratory Effort Non-Labored 07/04/21 10:24 Respiratory Depth Normal 07/04/21 10:24 Respiratory Pattern Normal 07/04/21 10:24 Blood Pressure 141/90 H 07/04/21 11:09 Blood Pressure Position Sitting 06/25/21 17:49 Pulse Oximetry 95 07/04/21 08:39 Respiratory End-tidal CO2 41 06/26/21 13:22 Oxygen Delivery Method Room Air 07/04/21 08:39 Oxygen Flow Rate 0 07/04/21 08:39 Pain Level 0 07/03/21 23:23 Comment 07/03/21 23:23 Intake & Output 07/03/21 07/03/21 07/04/21 11:59 23:59 11:59 Intake Total 480 / 840 360 / 840 Output Total 400 / 600 200 / 600 300 / 300 Balance 80 / 240 160 / 240 -290 / -290 Intake: IV Oral 480 / 840 360 / 840 Output: Urine 400 / 600 200 / 600 300 / 300 Other: Urine Color Dark Anna Straw Light Anna Urine Appearance Clear Clear Comment pt report voiding this am pt self reports voiding. pt denies pain when voiding Stool Size Moderate Stool Characteristics Soft Formed Voiding Methods Toilet Toilet Data Completed and Pending Labs on day of discharge: Labs from last 24 hours 07/04/21 07/04/21 06:15 06:15 WBC 13.08 H RBC 4.91 Hgb 14.3 Hct 45.9 MCV 93.5 MCH 29.1 MCHC 31.2 L RDW 12.0 Plt Count 524 H MPV 8.8 Immature Gran % 2.4 Neutrophils % 66.1 Lymphocytes % 21.6 Monocytes % 5.9 Eosinophils % 3.1 Basophils % 0.9 Nucleated RBC % 0.0 Absolute Neutrophils 8.65 H Absolute Lymphocytes 2.83 Absolute Monocytes 0.77 Absolute Eosinophils 0.41 Absolute Basophils 0.12 Sodium 140 Potassium 4.8 Chloride 101 Carbon Dioxide 29.8 Anion Gap 9.2 BUN 13 Creatinine 0.9 Estimated GFR/1.73 m2 >= 60.00 Glucose 94 Calcium 9.7 PFSH All Active Problems (Updated 06/25/21 @ 20:11 by Porfirio Ray NP) Autistic behavior (Acute) Acute appendicitis (Acute) Social History Smoking/Tobacco Use Status: Never Smoking risk assessment performed?: Yes Alcohol Intake: never Drug use: Never Do you feel safe at home: Yes Do you feel safe in your relationship?: Yes
--- NOTE | 2021-07-04 12:40 | PDOC.CMDIS ---
- If Service Date Differs Date of service: 07/04/21 Time of Service: 12:40 LACE Index Scoring Tool - Questions: Length of Stay (in days): 7 - 13 Acuity (Admit via E.D.?): Yes E.D. Visits: 1 - Answers: Total Score: 9 Risk of Readmission: Low Risk Care Management Discharge Reason for Hospitalization: Acute Appendicitis Discharge Plan: Donato will return home when medically cleared on oral prescription of antibiotic. Pharmacy closed, Donato given medication prior to discharge, will retrieve medication from [place] pharmacy in [facility] tomorrow. He will follow up with his PCP, surgeon and discharge plan of care. He will be driven home via private vehicle by family. Patient/Family Education Needs: Review discharge instructions, discuss Ask Me Three.
[2021-07-04] MEDS: metroNIDAZOLE 500 MG TAB PO (13:22)
[2021-07-04] MEDS: levoFLOXacin 500 MG, levoFLOXacin 250 MG 750 MG PO (13:22)
[2021-07-04] MEDS: diphenhydrAMINE 25 MG CAP 50 MG PO (13:23)
== END 2021-07-04 15:02 | disposition home or self-care (01) | DRG 339 ==
LOC: ER 19:58 → MS 20:40
PROVIDERS: Surgery; Admitting Provider Surgery; Emergency Provider Nurse Practitioner Family; PCP Family Medicine; Visit Provider Surgery
PROC: 0DTJ4ZZ Resection of Appendix, Percutaneous Endoscopic Approach (ICD-10-PCS; CPT 44970; principal; 2021-06-26 10:45)
DX: K35.21 Acute appendicitis with generalized peritonitis, with abscess (principal); F84.0 Autistic disorder; L27.1 Localized skin eruption due to drugs and medicaments taken internally; T36.1X5A Adverse effect of cephalosporins and other beta-lactam antibiotics, initial encounter
CPT/HCPCS: 44970; 36410; 36415; 80048; 80053; 83690; 87040; 87635; 96361; 96365; 96375; 99222; 99284; 99285; J1650; 71046; 74177; 81003; 83735; 84100; 84443; 85025; 88304; J0131; J1100; J1335; J1885; J2001; J2250; J2270; J2405; J2543; J2704; J3010; J3490

== ENCOUNTER 2021-07-07 03:04 | Outpatient (CLI) | payer MEDICARE, MEDICAID, SELFPAY ==
[2021-07-07 12:43] LABS: Abs Immature Grans 0.18 10^3/uL (0.0-0.06); Absolute Basophil Count 0.06 10^3/uL (0.0-0.2); Absolute Lymphocyte Count 2.36 10^3/uL (1.2-3.4); Absolute Neutrophil Count 7.01 10^3/uL (1.2-6.7); Basophils % 0.6; Eosinophils % 1.9; HCT 43.9 % (40.0-50.0); HGB 13.9 g/dL (13.5-17.5); Immature Grans % 1.7; Lymphocytes % 22.9; MCH 29.3 pg (27.0-33.0); MCHC 31.7 % (32.0-36.0); MCV 92.6 fL (80-95); MPV 8.7 fL (8.0-11.0); Monocytes % 4.8; Neutrophils % 68.1; Platelet Count 508 10^3/uL (130-400); RBC 4.74 10^6/uL (4.36-5.78); WBC 10.31 10^3/uL (4.4-10.8)
[2021-07-07 12:57] LABS: ALT 77 U/L (16-63); AST 33 U/L (15-37); Albumin 3.7 g/dL (3.4-5.0); Alkaline Phosphatase 114 U/L (46-116); Anion Gap 6.9 mmol/L (3-11); BUN 11 mg/dL (7-18); Bilirubin, Total 0.2 mg/dL (0.2-1.0); CO2 29.1 mmol/L (21.0-32.0); Calcium 9.3 mg/dL (8.5-10.1); Chloride 103 mmol/L (98-107); Glucose 127 mg/dL (74-106); Potassium 3.8 mmol/L (3.5-5.1); Sodium 139 mmol/L (136-145); Total Protein 8.5 g/dL (6.4-8.2)
== END 2021-07-07 03:05 | disposition home or self-care (01) ==
LOC: LBO 03:04
PROVIDERS: PCP Family Medicine; Visit Provider Physical Therapy Assistant
DX: G89.18 Other acute postprocedural pain (principal); R10.9 Unspecified abdominal pain; R10.84 Generalized abdominal pain; D72.829 Elevated white blood cell count, unspecified; F84.0 Autistic disorder; K35.80 Unspecified acute appendicitis
CPT/HCPCS: 36415; 80053; 85025; 86140

== ENCOUNTER 2021-07-15 03:12 | Outpatient (CLI) | payer MEDICARE, MEDICAID, SELFPAY ==
[2021-07-15 11:49] LABS: Abs Immature Grans 0.03 10^3/uL (0.0-0.06); Absolute Basophil Count 0.06 10^3/uL (0.0-0.2); Absolute Eosinophil Count 0.12 10^3/uL (0.0-0.7); Absolute Monocyte Count 0.42 10^3/uL (0.1-0.8); Absolute Neutrophil Count 5.33 10^3/uL (1.2-6.7); Basophils % 0.7; C-Reactive Protein 0.25 mg/dL (0.0-0.3); Eosinophils % 1.5; HCT 43.9 % (40.0-50.0); HGB 13.6 g/dL (13.5-17.5); Immature Grans % 0.4; Lymphocytes % 27.8; MCH 29.2 pg (27.0-33.0); MCV 94 fL (80-95); MPV 9.4 fL (8.0-11.0); Monocytes % 5.1; Neutrophils % 64.5; Platelet Count 344 10^3/uL (130-400); RBC 4.66 10^6/uL (4.36-5.78); RDW 12.7 % (11.8-14.1); RDW-SD 43.7 fL; WBC 8.26 10^3/uL (4.4-10.8)
== END 2021-07-15 03:13 | disposition home or self-care (01) ==
LOC: LBO 03:13
PROVIDERS: PCP Family Medicine; Visit Provider Surgery
DX: F84.0 Autistic disorder (principal); K35.80 Unspecified acute appendicitis
CPT/HCPCS: 36415; 85025; 86140

== ENCOUNTER 2021-07-27 22:08 | Emergency (ER) | payer MEDICARE, MEDICAID, SELFPAY ==
--- NOTE | 2021-07-27 22:11 | ED.GENADUL_ITS ---
Discharge Plan Disposition Patient Disposition: HOME Condition: Good Discharge Details Clinical Impression: Contusion of foot, right Primary Care Provider: Tommy Marti ED Provider: Luis F Willis Meds and New Rx's Prescriptions: No Action calcium phosphate-vitamin D2 100 mg-100 unit (2.5 mcg) tablet,chewable 1 tab PO DAILY 0RF Gummi Bear Multivitamin Tablet,Chewable 1 tab PO DAILY 0RF Discharge Instructions Instructions: Foot Contusion (ED) Additional Instructions: X ray of your foot is negative for fracture or dislocation. Please wear the postop shoe while ambulating. Ice and elevate when you can. Ibuprofen or acetaminophen as needed for pain. Follow-up with primary care next week if not improving. Return to ED for increasing pain, redness, fever, other problems. Medical Decision Making Patient presenting with right big toe and foot pain status post striking it on a bed frame last night having difficulty ambulating because of pain. Has tenderness, bruising, erythema at the base of the big toe. X-rays ordered. X-rays are negative per my review. Preliminary radiology read without fracture or dislocation. Patient will be given postop shoe to prevent pushing off with his big toe. Recommend elevation and ice when possible. He should use aceta minophen or ibuprofen for pain. If no improvement by next week follow-up with primary care. If any worsening pain, swelling, redness, fever, other concerns return to ED. HPI General Mode of arrival: ambulatory . Date/Time Provider Initiated Documentation: 07/27/21 22:11 . Limitations to Documentation: no limitations . Information obtained by: patient . HPI Narrative: Patient presents to the ED with right foot pain and swelling. Patient reports striking his toe against the bed frame last Monday. He has had difficulty ambulating all day long. Worsening pain in the big toe.. He denies any other injury. He denies pain elsewhere. Related Data Home Medications Medication Instructions Recorded Confirmed calcium phosphate 100 mg-vitamin 1 tab PO DAILY 07/15/21 07/27/21 D2 100 unit (2.5 mcg) chewable tablet pediatric multivitamin (Gummi Bear 1 tab PO DAILY 07/15/21 07/27/21 Multivitamin) Allergies Allergy/AdvReac Type Severity Reaction Status Date / Time No Known Allergies Allergy Unverified 07/27/21 22:14 General SANTI: 3 Review of Systems Narrative: As documented in HPI otherwise negative as below. Const: no fever, chills, weakness Resp: no cough, SOB, pleuritic pain CV: no CP, diaphoresis, edema, syncope GI: no abdominal pain, nausea, vomiting, diarrhea Neuro: no headache, numbness, focal weakness, confusion PFSH All Active Problems (Updated 07/28/21 @ 00:01 by Luis F Willis MD) Contusion of foot, right (Acute) Autistic behavior (Acute) Medical History Autism Surgical History S/P appendectomy Social History Smoking/Tobacco Use Status: Never Smoking risk assessment performed?: Yes Alcohol Intake: never Drug use: Never Do you feel safe at home: Yes Do you feel safe in your relationship?: Yes Exam Const General: cooperative and no acute distress HENMT Head: normocephalic and atraumatic Neck Neck: trachea midline and supple Resp Effort & Inspection: normal respiratory effort Neuro General: patient alert and patient oriented x3 Speech: speech normal Gait: normal gait Extrem Right lower extremity: foot Details: normal capillary refill, tenderness Location: of the great toe, abnormal ROM of toe Details: pain with active ROM and pain with passive ROM, no edema and ecchymosis (base of big toe)
[2021-07-27 22:12] VITALS: BP 168/97; PULSE 89; RESP 20; TEMP 36.6; O2SAT 99
--- NOTE | 2021-07-27 22:30 | DI.RAD_ITS ---
Exam(s) XR FOOT RT COMPLETE EXAM: XR FOOT RT COMPLETE CLINICAL HISTORY: trauma. TECHNIQUE: 2D digital imaging was performed. Three views. COMPARISON: No exams were available for comparison FINDINGS: BONES: No acute fracture is present. No bony destructive lesion is seen. JOINTS: No dislocation present. SOFT TISSUE: Normal. IMPRESSION: Unremarkable radiographs of the right foot. DATA REPOSITORY: RADIATION DOSE DELIVERED:
--- NOTE | 2021-07-27 23:50 | DI.VRAD_ITS ---
PROCEDURE INFORMATION: Exam: XR Right Foot Exam date and time: 07/27/2021 11:12 PM Age: 31 years old Clinical indication: Right; Patient HX: Pain, trauma, hit foot on bed, swelling TECHNIQUE: Imaging protocol: XR Right foot. Views: 3 or more views. COMPARISON: No relevant prior studies available. FINDINGS: Bones/joints: Posterior calcaneal enthesophyte. No displaced fractures or dislocations. Soft tissues: Grossly unremarkable. IMPRESSION: No acute fractures or dislocations. Dictated and Authenticated by: Carlos Garcia MD. Ordering:HERBER Kerns MD
== END 2021-07-28 00:14 | disposition home or self-care (01) ==
PROVIDERS: Emergency Provider Emergency Medicine; PCP Family Medicine
DX: S90.31XA Contusion of right foot, initial encounter (principal); W22.09XA Striking against other stationary object, initial encounter
CPT/HCPCS: 99283; 73630

== ENCOUNTER 2023-11-09 16:35 | Outpatient (REF) | payer MEDICARE, MEDICAID, SELFPAY ==
[2023-11-09 16:14] LABS: ALT 35 U/L (16-63); AST 24 U/L (15-37); Albumin 4.3 g/dL (3.4-5.0); Alkaline Phosphatase 88 U/L (46-116); Anion Gap 9.2 mmol/L (3-11); BUN 8 mg/dL (7-18); Bilirubin, Total 0.54 mg/dL (0.2-1.0); CO2 30.8 mmol/L (21.0-32.0); CREATININE 0.8 mg/dL (0.70-1.30); Calcium 9.6 mg/dL (8.5-10.1); Calculated LDL 105 mg/dL (<100); Chloride 101 mmol/L (98-107); Cholesterol 182 mg/dL (<200); Estimated GFR 118.36 (mL/min/1.73m2); Glucose 94 mg/dL (74-106); HDL Cholesterol 59 mg/dL (40-60); Potassium 4.2 mmol/L (3.5-5.1); Sodium 141 mmol/L (136-145); Total Protein 7.8 g/dL (6.4-8.2); Triglyceride 90 mg/dL (<150)
[2023-11-09 16:19] LABS: Hemoglobin A1C 5.6 % (<5.7)
--- OUTSIDE RECORDS SUMMARY | 2023-11-09 16:37 | XMS_ITS | Encounter Summary ---
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 Name Role Phone Unavailable Primary Care Provider Unavailabl e Encounter Details Date Type Department Care Team (Late st Contact Info) Description 10/22/2009 1:45 PM EDT [place] [address] Qamar Russo MD [facility] [place] [address] Discharge Disposition: Home Social History Tobacco Use Types Packs/Day Years Used Date Smoking Tobacco: Never Assessed Sex and Gender Information Value Date Recorded Sex Assigned at Not on file Gender Identity Not on file Sexual Orientation Not on file documented as of this encounter Plan of Treatment Not on file documented as of this encounter Visit Diagnoses Not on filedocumented in this encounter
--- OUTSIDE RECORDS SUMMARY | 2023-11-09 16:37 | XMS_ITS | Data Portability ---
Author Organization [place] - [facility] [place] [address] Assessment Encounter Date Assessment Date Assessment LastModified by Organization Details LastModified Time 11/09/2023 11/09/2023 Donato is a 33yo male with PMH of autism spectrum disorder, prediabetes, and HTN here today to establish care with Dr. Mohan. Patient seen with Ernesto Ge, MS3 from [facility]. Patient seen and evaluated by me, Dr. Mohan, and I reviewed and edited the note. [email or web address] Not available 11/09/2023 13:34:46 Plan of Treatment Reminders Order Date Submit Date Provider Last Modified By Organization Details Last Modified Time Details Appointments Office Visit 2023 09:00A M Not available Not available Not available Office Visit 2023 09:00A M Not available Not available Not available Lab CMP, serum or plasma - 1 tiger and 1 purple drawn in office-SN 2023 024 [facility] (Registration ), [address] [place] [address] [place], [address], 11/09/2023 16:18:30 lipid panel, serum [address] [facility] (Registration ), [address] [place] [address] [place], [address], 11/09/2023 11:09:05 HbA1c (hemoglob in A1c), blood [address] [facility] (Registration ), [address] [place] [address] [place], [address], 11/09/2023 11:09:05 Referral physical therapist referral - duck footed, shuffling , trips, hip pain. Suzette Moscoso 2023 024 ISAEL Miguel PT, [address], [place], [address], 11/09/2023 11:01:07 Procedures None recorded. Surgeries None recorded. Imaging None recorded. Medication Orders lorazepam 0.5 mg tablet 2023 024 [email or web address], [address] [place], [address], 11/09/2023 10:43:22 Patient TargetsNo targets recorded. Patient InstructionsNo instructions recorded. Reason for Referral Physical Therapist Referral for Shuffling gait duck footed, shuffling, trips, hip pain. 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 002 Problem Code: R62.50; Problem Code Type: ICD-10; Not Available [facility] 3 05:51:00 Autistic disorder Active 010 Problem Code: F84.0; Problem Code Type: ICD-10; Ernesto dominguez [facility] 4 10:25:24 Asthma Completed 005 12/27/2004 Not Available [facility] 3 05:51:00 Cough Active 015 Problem Code: R05; Problem Code Type: ICD-10; Not Available [facility] 3 05:51:00 Nasal congestion Active 015 Problem Code: R09.81; Problem Code Type: ICD-10; Not Available [facility] 3 05:51:01 Obesity Active 016 Problem Code: E66.9; Problem Code Type: ICD-10; Not Available [facility] 3 05:51:01 Essential hypertension Active 016 Problem Code: I10; Problem Code Type: ICD-10; [facility] 10[facility]35 Anxiety disorder Active 018 Problem Code: F41.9; Problem Code Type: ICD-10; Not Available [facility] 3 05:51:01 Dental caries Active 018 Problem Code: K02.9; Problem Code Type: ICD-10; Not Available [facility] 3 05:51:01 Acanthosis nigricans Active 020 Problem Code: L83; Problem Code Type: ICD-10; Not Available [facility] 3 05:51:01 Pain of toe of right foot Completed 020 11/19/2019 11/13/2019 - Comments only - Jerzy Skaggs RPA - I suspect secondary to mild trauma. Advised ice and Advil for the next couple of days. Problem Code: M79.674; Problem Code Type: ICD-10; Not Available [facility] 3 05:51:02 Prediabetes Active 020 Problem Code: R73.03; Problem Code Type: ICD-10; [facility] 4 10:25:43 [place] - lesion Active 022 Problem Code: L84; Problem Code Type: ICD-10; Not Available [facility] 3 05:51:02 Acute stress disorder Active 023 Problem Code: F43.0; Problem Code Type: ICD-10; Not Available [facility] 3 05:51:02 Elevated blood-pressure reading without diagnosis of hypertension Completed 016 12/14/2022 Problem Code: R03.0; Problem Code Type: ICD-10; Not Available [facility] 3 05:51:08 Acute appendicitis Completed 022 09/29/2021 Problem Code: K35.80; Problem Code Type: ICD-10; Not Available [facility] 3 05:51:10 Stereotypy habit disorder Completed 016 09/29/2021 Problem Code: F98.4; Problem Code Type: ICD-10; Not Available [facility] 3 05:51:18 Shuffling gait Active 024 MATTHEW MOHAN MD [address], [place], [address] , [facility] 4 10:01:37 Problem Notes None recorded. Medical Equipment None Reported. Allergies Allergen ID Allergen Name Allergen Category Reaction Reaction Severity Criticality Documentation Date Start Date Code Code System Note Provider Name and Address Organization Details Recorded Time 90827 lactose food,medi cation Not available Not available Not available 11/09/2023 6211 RxNorm ORIN FRAZIER, [facility] 4 09:02:27 Medications Name Sig Start Date Stop Date Status Note LastModified by Organization Details LastModified Time benzoyl peroxide 5 % lotion apply bid 05/23 completed Not Available Not Available Not Available pseudoeph edrine ER 120 mg tablet,ex tended release Take 1 tablet by mouth twice a day. 02/18 completed Not Available Not Available Not Available metronida zole 500 mg tablet Take 1 tablet by mouth three times a day 09/29 completed Per [facility] d/c summary 07/04/21 Not Available Not Available Not Available chlorthal idone 25 mg tablet Take 0.5 tab by mouth daily 08/02 completed Not Available Not Available Not Available tramadol 50 mg tablet Take 1 tablet by mouth every six hours as needed 09/29 completed Per [facility] d/c summary 07/04/21 Not Available Not Available Not Available triamcino lone acetonide 0.1 % topical cream [place] AA BID 05/23 completed Not Available Not Available Not Available lidocaine -prilocai ne 2.5 %-2.5 % topical cream Apply to skin 11/08 completed Not Available Not Available Not Available lorazepam 0.5 mg tablet Take 1 tablet by mouth once as needed take 1 tablet 1 hour prior to dentist 2023 active Not Available Not Available Not Avai lable pantopraz ole 40 mg tablet,de layed release Take 1 tab by mouth daily. 05/05 completed Not Available Not Available Not Available Transderm -Scop 1 mg over 3 days transderm al patch apply one every 3 days 1.5 mg/3 days 2014 active Not Available Not Available Not Avai lable azelastin e 137 mcg (0.1 %) nasal spray 2 sprays in nose twice daily 03/28 completed Not Available Not Available Not Available Nasonex 50 mcg/actua tion [place] 2 sprays in each nostril daily 07/05 completed Not Available Not Available Not Available levofloxa jose a 750 mg tablet Take 1 tablet by mouth once a day Take for 7 days 09/29 completed Per [facility] d/c summary 07/04/21 Not Available Not Available Not Available fluticaso ne propionat e 50 mcg/actua tion nasal spray,melisas pension 2 sprays daily 10/16 completed Not Available Not Available Not Available sertralin e 50 mg tablet Take 1 tab by mouth daily 12/16 completed Not Available Not Available Not Available ipratropi um bromide 21 mcg (0.03 %) nasal spray 2 sprays each nostril twice daily. 12/16 completed Not Available Not Available Not Available loratadin e 10 mg tablet Take 1 tab by mouth daily 02/18 completed Not Available Not Available Not Available Spiriva with [employer] r 18 mcg and inhalatio n capsules 1 inhalati on daily 07/27 completed Not Available Not Available Not Available hydrochlo rothiazid e 12.5 mg tablet Take 1 tablet by mouth once a day 09/29 completed Not Available Not Available Not Available Guaifenes in AC 10 mg-100 mg/5 mL oral syrup 1-2 tsp every six hours 06/20 completed Not Available Not Available Not Available Zetonna 37 mcg/actua tion nasal HFA inhaler 1 puff each nostril once a day 02/18 completed Not Available Not Available Not Available Incruse Ellipta 62.5 mcg/actua tion powder for inhalatio n Inhale 1 puff by mouth daily 12/19 completed Not Available Not Available Not Available Rhinocort Allergy 32 mcg/actua tion nasal spray 2 sprays each nostril once a day 03/01 completed Not Available Not Available Not Available Vitals Date Recorded Body height Body temperature Body mass index (BMI) Body weight Oxygen saturation Oxygen saturation in Arterial blood by Pulse oximetry Heart rate Systolic blood pressure Diastolic blood pressure Provider Name and Address Organization Details Last Updated DateTime 4 189.23 cm 97.8 [degF] 31.5 kg/m2 494576. 5 g 99 % 99 % 74 /min 144 mm[Hg] 78 mm[Hg] VAUGHN ESPINOSA MA [facility] 4 09:06:25 Social History None recorded. Functional Status None recorded. Mental Status None recorded. Family History Relationship Description Onset Age of this Age Resolved Age Notes Mother Family history of Hypertension chronic fatigue, fibromyalgia, restless leg, [place]. Mother Family history of diabetes mellitus type 1 Medical History No medical history recorded. Immunizations Vaccine Type Date Status Provider Name and Address Organization Details Recorded Time MMR 12/28/1989 completed Not Available [facility] 05:19:48 DTaP, unspecified formulation 05/14/1990 completed Not Available [facility] 01/27/2023 05:19:49 DTaP, unspecified formulation 1988 completed Not Available [facility] 01/27/2023 05:19:49 DTaP, unspecified formulation 1988 completed Not Available [facility] 01/27/2023 05:19:49 DTaP, unspecified formulation 11/10/1993 completed Not Available [facility] 01/27/2023 05:19:49 DTaP, unspecified formulation 1988 completed Not Available [facility] 01/27/2023 05:19:49 Tdap 10/16/2014 completed Not Available [facility] 05:19:49 Td(adult) unspecified formulation 01/08/2004 completed Not Available [facility] 01/27/2023 05:19:50 Hib, unspecified formulation 12/28/1989 completed Not Available [facility] 01/27/2023 05:19:51 COVID-19, mRNA, LNP-S, PF, 30 mcg/0.3 mL dose 04/05/2021 completed Not Available [facility] 01/27/2023 05:19:51 COVID-19, mRNA, LNP-S, PF, 30 mcg/0.3 mL dose 07/30/2020 completed Not Available [facility] 01/27/2023 05:19:51 COVID-19, mRNA, LNP-S, PF, 30 mcg/0.3 mL dose 08/20/2020 completed Not Available [facility] 01/27/2023 05:19:52 varicella 03/15/2007 completed Not Available [facility] 05:19:52 Hep B, unspecified formulation 09/06/2001 completed Not Available [facility] 01/27/2023 05:19:52 Hep B, unspecified formulation 12/05/2000 completed Not Available [facility] 01/27/2023 05:19:52 Hep B, unspecified formulation 01/19/2001 completed Not Available [facility] 01/27/2023 05:19:52 polio, unspecified formulation 05/14/1990 completed Not Available [facility] 01/27/2023 05:19:52 polio, unspecified formulation 1988 completed Not Available [facility] 01/27/2023 05:19:53 polio, unspecified formulation 1988 completed Not Available [facility] 01/27/2023 05:19:53 polio, unspecified formulation 1988 completed Not Available [facility] 01/27/2023 05:19:53 Past Encounters Encounter ID Performer Location Encounter Start Date Encounter Closed Date Diagnosis/Indication Diagnosis SNOMED-CT Code [id number] MATTHEW MOHAN MD [address] [address] 11/09/2023 08:52:42 11/09/2023 10:37:28 Obesity 968462317 Essential hypertension 26158552 Prediabetes 886635764 Shuffling gait 30706496 Anxiety disorder 1011420 06 Health Concerns Section Related Observation LastModified by Organization Detai ls LastModified Time None Recorded Concern Status LastModified by Organization Details LastModified Time None Recorded Advance Directives Directive None Recorded Payers Encounter Date Sequence Insurance Name Policy Number Policy Vidal Covered Member ID Vidal Member ID Guarantor Name 11/09/2023 2 [facility] (MEDICAID) Donato Bagley [id number] Donato Bagley 11/09/2023 1 [place] [employer] Donato Bagley [id number] Donato Bagley Notes Date Note Type Note Provider Name and Address Organization Details Recorded Time 11/09/2023 text/html HPI Notes: Donato is a 33yo male with PMH of autism spectrum disorder, prediabetes, and HTN here today to establish care with Dr. Mohan. Donato came in with his mother and sister. He is doing well overall, and he has no acute concerns. His mother and sister were primary historians during the visit. We discussed the following concerns: Gait- He has a wide based, shuffling gait. He has had this for most of his life. His sister wonders if he should do PT because he sometimes complains about his knees hurting. Phlegm- He seems to always have stuff in his throat. This has gotten better since he has been eating less lactose. Dentist- He recently started seeing an adult dentist as he followed for a while with his pediatric dentist with whom he had a good relationship. He is going to [facility] for a consult appointment on December 17 to discuss procedures. He needs some teeth pulled. Mother requested lorazepam to help his anxiety around this appointment. [facility] shows that Lorazepam was last sold on 11/18/2022 for 2 days. Prediabetes- He has been eating more vegetables and lots of protein. His HbA1c was 5.7 in 2020. They have not had it checked recently. Mood- He said his mood has been ok. He wants to move out of their current apartment because it is small. He was previously on sertraline for anxiety, but that didn't seem to help much. MATTHEW MOHAN MD [address], [place], [address], [facility]. 11/09/2023 13:35:53
--- OUTSIDE RECORDS SUMMARY | 2023-11-09 16:37 | XMS_ITS | Encounter Summary ---
Author Organization [facility] Address [address] [place] [address] Care Team Providers Care Scanner Operator Name Role Phone Unavailable Primary Care Provider Unavailabl e Encounter Details Date Type Department Care Team (Latest Contact Info) Description 01/30/2008 10:29 EST - 01/30/2008 11:59 EST Hospital Encounter [facility] - [address] [address] Kevyn Cowart, DDS [address] [place] [address] Discharge Disposition: Home or Self Care Social History Tobacco Use Types Packs/Day Years Used Date Smoking Tobacco: Never Assessed Sex and Gender Information Value Date Recorded Sex Assigned at Not on file Gender Identity Not on file Sexual Orientation Not on file documented as of this encounter Discharge Disposition Disposition Code Departure Means Destination Home or Self Care documented in this encounter Plan of Treatment Not on file documented as of this encounter Visit Diagnoses Not on filedocumented in this encounter
--- OUTSIDE RECORDS SUMMARY | 2023-11-09 16:37 | XMS_ITS | Encounter Summary ---
Author Organization [facility] Address [address] [place] [address] Care Team Providers Care Kettle Worker Name Role Phone Barron Morales MD Primary Care Provider [phone] Encounter Details Date Type Department Care Team (Latest Contact Info) Description 06/08/2011 9:56 EDT - 06/08/2011 18:45 EDT Hospital Encounter [facility] Perioperative Services - [address] [address] Isiah Lugo, DDS [address] [place], [place] [id number] Kevyn Cowart, DDS [address] [place] [address] Discharge Disposition: Home or Self Care Social History Tobacco Use Types Packs/Day Years Used Date Smoking Tobacco: Never Assessed Sex and Gender Information Value Date Recorded Sex Assigned at Not on file Gender Identity Not on file Sexual Orientation Not on file documented as of this encounter Last Filed Vital Signs Vital Sign Reading Time Taken Comments Blood Pressure 132/97 06/08/2011 1800 EDT Pulse - - Temperature 37 ??C (98.6 ??F) 06/08/2011 1815 EDT Respiratory Rate 17 06/08/2011 1800 EDT Oxygen Saturation 94% 06/08/2011 1830 EDT Inhaled Oxygen Concentration - - Weight 117 kg (257 lb 15 oz) 05/25/2011 0955 EST Height 190.5 cm (6' 3) 05/25/2011 0955 EST Body Mass Index 32.24 05/25/2011 0955 EST documented in this encounter Discharge Instructions * Discharge Instructions* Kevyn Cowart MD - 06/08/2011 15:25 EDT DENTAL REHABILITATION POST-OP INSTRUCTIONS ACTIVITY - Quiet day today with limited physical activity. Balance and stability may be altered. - No restrictions on Day 2. ORAL HYGIENE - No brushing today. The teeth may be wiped with a gauze or washcloth for the first few days. - Brushing (2 times per day with fluoride toothpaste) may resume on Day 2. - Flossing is encouraged to begin on Day 3. DIET - Drink more fluids than usual today. - Soft foods that are easily chewed and swallowed are encouraged for today. After a day or two, no restrictions are necessary. - To reduce the risk of future cavities, healthy snack choices are critical. PAIN - Give acetaminophen on day one every 4-6 hours to manage mild discomfort. - Mild puffiness of the lips and cheeks may be noted. If tolerated, a cold compress may reduce swelling when applied periodically during the first 24 hours. - Apply Vaseline to dry lips as needed. NOTIFY YOUR DOCTOR IF YOU HAVE ANY OF THE FOLLOWING SYMPTOMS: - Fever greater than 100F (38C) - Uncontrolled bleeding - Persistent nausea or vomiting. - Pain unrelieved by pain medicine. documented in this encounter Medications at Time of Discharge Medication Sig Dispensed Refills Start Date End Date MULTIVITAMIN ORAL Take 1 Tab by mouth daily. documented as of this encounter Discharge Disposition Disposition Code Departure Means Destination Home or Self Care documented in this encounter Progress Notes * PLAN NURSE, RAUL 2 - 06/13/2011 0630 EDT * Digna Alvarez RN - 05/25/2011 1022 EST Mom needs to stay with pt, even going into OR until he is fast asleep, other farmer he will be hard to manage, * Digna Alvarez RN - 05/25/2011 1016 EST Donato Bagley has been instructed as follows regarding medication administration for the day of the scheduled procedure. Date of Surgery: 06/08/2011 Instructions for Taking Medications Day of Surgery Medication Last Dose Hold DOS Take DOS MULTIVITAMIN ORAL D/C 1 wk pre-op documented in this encounter H&P Notes * PLAN NURSE, SCAN 2 - 06/13/2011 0630 EDT * Kevyn Cowart MD - 06/08/2011 1306 EDT The preoperative history and physical which was performed within 30 days of this procedure has been reviewed and the clinically appropriate elements of the physical examination have been repeated. There are no changes to the documented history and physical or if so such changes are documented below Kevyn Cowart MD 06/08/2011 13:06 documented in this encounter Procedure Notes * PLAN NURSE, SCAN 2 - 06/13/2011 0630 EDTAssociated Order(s): ECG REPORT - SCANNED documented in this encounter OR Notes * OR PreOp - PLAN NURSE, SCAN 2 - 07/22/2011 1309 EDT * OR PreOp - PLAN NURSE, SCAN 2 - 06/13/2011 0630 EDT * OR Surgeon - Kevyn Cowart MD - 06/09/2011 0719 EDT OPERATIVE REPORT SERVICE DATE: 06/08/2011 SURGEON: Kevyn Cowart DDS MIXED SIGNAL DESIGN ENGINEER: None. PROCEDURE: Dental rehabilitation. ANESTHESIA: General via nasotracheal tube. PREOPERATIVE DIAGNOSIS: 1. Acute situational anxiety. 2. Autism and gross dental caries. POSTOPERATIVE DIAGNOSIS: 1. Acute situational anxiety. 2. Autism and gross dental caries. INDICATIONS: Due to this patient's complicated health history including diagnosis of autism, dentalneeds, and inability to cooperate in a traditional dental setting it was deemed necessary to treat this patient under general anesthesia to address this patient's dental needs and render this patientfree of pain and infection. NARRATIVE: The patient was escorted back to the operating room by his mother. Following successful mask induction the mother was escorted back out to the waiting area. The anesthesia portion of this case then proceeded with successful IV line establishment and nasotracheal intubation. The dental portion of this case then began. Two bitewing radiographs and three periapical radiographs were exposed. A review of the radiographs and clinical exam confirmed the preoperative diagnosis. Throat pack was then placed. Rubber dam was then placed on the lower arch. The following treatment was then performed on the lower arch: Teeth 22 and 23 received 1-surface composite restorations, teeth 28, 19, 20 and 30 received 2-surface composite restorations. Rubber dam was then removed from the lower arch and placed on the upper arch. The following treatment was then performed on the upper arch: Teeth 8 and 9 received composite restorations. Tooth 8 was 3-surface and tooth 9 was 4-surface. Rubber dam wasthen removed from the upper arch. Thorough prophylaxis and fluoride treatment were then performed. The throat pack was then removed. The child was extubated in the operating room and brought to recovery with all bleeding controlled and packs removed in good condition. Unless otherwise noted, there were no complications, no blood loss, no cultures obtained, no specimens removed, and no drains retained. Kevyn Cowart DDS 03 45 PM / Kevyn Cowart DDS Confirmation: [id number] Dictation ID: [id number] cc:Barron Morales MD * Anesthesia Procedure Notes - PLAN NURSE, SCAN 2 - 06/08/2011 1545 EDT * OR PreOp - PLAN NURSE, SCAN 2 - 06/08/2011 1522 EDT * Anesthesia Preprocedure Evaluation - PLAN NURSE, SCAN 2 - 06/08/2011 1318 EDT documented in this encounter Miscellaneous Notes * Scanned Note-Null - PLAN NURSE, SCAN 2 - 06/13/2011 0630 EDT * Scanned Note-Null - PLAN NURSE, SCAN 2 - 06/13/2011 0630 EDT * Anesthesia Post-Eval - Kunal Socrates - 06/08/2011 1846 EDT Post Anesthesia Evaluation Note Date of Service: 06/08/2011 Donato Bagley, a 21 y.o. year old male has received General Anesthesia today. He has been evaluated, assessed and discharged from anesthesia care with stable cardiorespiratory function and alert mental status. The last set of recorded vital signs and pain rating were reviewed: Temp: 37 ??C (98.6 ??F) (06/08/111814), Heart Rate: 81 BPM (06/08/111799), BP: 132/97 mmHg (06/08/111799), Resp: 17 (06/08/111799), SpO2: 94 % (06/08/111814),Numeric Pain Level (Scale 1-10): 0 Doanto Bagley participated in this evaluation unless otherwise noted. His pain, nausea and vomitinghave been managed and his body temperature and fluid balance have been restored. Additional monitoring and assessment needs have been addressed. If present, any postoperative events are documented below. SOCRATES GRIFFITH MD 06/08/2011 18:46 * Brief Op Note - Kevyn Cowart MD - 06/08/2011 1523 EDT Dental Rehabilitation Post op Note: Donato Bagley underwent an oral rehabilitation under general anesthesia for dental caries and acutesituational anxiety. Underlying medical disorders include: autism. 8 teeth were restored, and 0 teeth were extracted. Rectal Tylenol was administered for pain. Bleeding was minimal and controlled. Patient was extubated and sent to recovery in good condition. There were no complications, no packs, and no drains. Post-op instructions were reviewed with the parent / caregiver. Plan to discharge to home per anesthesia when PACU criteria are met. Kevyn Cowart MD 06/08/2011 15:24 documented in this encounter Plan of Treatment Not on file documented as of this encounter Procedures Procedure Name Priority Date/Time Associated Diagnosis Comments ECG REPORT - SCANNED 06/13/2011 6:30 EDT documented in this encounter Results * ECG REPORT - SCANNED (06/13/2011 6:30 EDT) 06/13/2011 6:30 EDT Narrative Transcriptions PLAN NURSE, SCAN 2 - 06/13/2011 6:30 EDT Scan 2 Spudder PROCEDURE/MINOR LISA GICAL ORDERABLES documented in this encounter Visit Diagnoses Not on filedocumented in this encounter Administered Medications Inactive Administered Medications - up to 3 most recent administrations Medication Order MAR Action Action Date Dose Rate Site lactated ringers (LR) infusion at 25 mL/hr, intravenous, CONTINUOUS, Starting on Mon06/08/11 at 1130, Until Mon06/08/11 at 2057, Routine, Pre-Op DOS Rx Approved New Bag 06/08/2011 11:41 EDT 25 mL/hr lidocaine-prilocaine (EMLA) 2.5-2.5 % cream topical (top), Once (Without Time Specified), 1 dose, Starting on Mon06/08/11 at 1130, Until Mon06/08/11 at 1138, Preprocedure Given 06/08/2011 11:38 EDT midazolam (VERSED) syrup 20 mg 20 mg, oral, ONCE PRN, 1 dose, Starting on Mon06/08/11 at 1130, Until Mon06/08/11 at 1250, Other, Pediatric Anesthesia Pre-Op Medications: anxiolysis, Routine, Preprocedure Given 06/08/2011 12:50 EDT 472 mg documented in this encounter Historical Medications * This list may reflect changes made after this encounter. Medication Sig Dispensed Refills Start Date End Date MULTIVITAMIN ORAL Take 1 Tab by mouth daily. added in this encounter Active and Recently Administered Medications Times are shown in EDT. Scheduled Medication Order 06/06/2011 06/07/2011 06/08/2011 lidocaine-prilocaine (EMLA) 2.5-2.5 % cream (COMPLETED) topical (top), Once (Without Time Specified), 1 dose, Starting on Mon06/08/11 at 1130, Until Mon06/08/11 at 1138, Preprocedure 1138 (Given - Provid er: Minerva Mota RN - Comment: placed by Mom) Continuous Medication Order 06/06/2011 06/07/2011 06/08/2011 lactated ringers (LR) infusion (CANCELED) at 25 mL/hr, intravenous, CONTINUOUS, Starting on Mon06/08/11 at 1130, Until Mon06/08/11 at 2057, Routine, Pre-Op DOS Rx Approved 1141 (New Bag - Prov ider: Minerva Mota RN) PRN Medication Order 06/06/2011 06/07/2011 06/08/2011 midazolam (VERSED) syrup 20 mg (COMPLETED) 20 mg, oral, ONCE PRN, 1 dose, Starting on Mon06/08/11 at 1130, Until Mon06/08/11 at 1250, Other, Pediatric Anesthesia Pre-Op Medications: anxiolysis, Routine, Preprocedure 1250 (Given - Provid er: Yin A Obriendenham) documented in this encounter Orders Medications Ordered That Yosvany ht Not Have Been Administered Count Last Ordered Date First Ordered Date acetaminophen (TYLENOL) tablet 1,000 mg 1 0 06/08/2011 atropine 0.1 mg/mL 10 mL syringe 0.5 mg 1 0 06/08/2011 diphenhydrAMINE (BENADRYL) i njection 6.25 mg 1 06/08/2011 fentanyl citrate (PF) 50 mcg /mL injection 25-100 mcg 1 06/08/2011 lactated ringers (LR) infusion 1 06/08/2011 naloxone (NARCAN) injection 0.2 mg 1 2011 ondansetron (PF) (ZOFRAN) injection 2 mg 1 06/08/2011 Nursing Count Last Ordered Date First Orde red Date INSERT PERIPHERAL IV 1 06/08/2011 Admission Count Last Ordered Date First Orde red Date NOTIFY PPS PACU PATIENT DISCHARGE 1 012 documented in this encounter Care Teams Kettle Worker Relationship Specialty Start Date End Date Barron Morales MD [address] [place] [address] PCP - General 04/26/11 05/17/21 documented as of this encounter
--- OUTSIDE RECORDS SUMMARY | 2023-11-09 16:37 | XMS_ITS | Encounter Summary ---
Author Organization [facility] Address [address] [place] [address] Care Team Providers Care Metal Treater Name Role Phone Barron Morales MD Primary Care Provider [phone] Encounter Details Date Type Department Care Team (Latest Contact Info) Description 07/03/2013 9:49 EDT - 07/03/2013 17:52 EDT Hospital Encounter [facility] Perioperative Services - [address] [id number] Kevyn Cowart, LETICIAS [address] [place], [place] [id number] Discharge Disposition: Home or Self Care Social History Tobacco Use Types Packs/Day Years Used Date Smoking Tobacco: Never Assessed Sex and Gender Information Value Date Recorded Sex Assigned at Not on file Gender Identity Not on file Sexual Orientation Not on file documented as of this encounter Last Filed Vital Signs Vital Sign Reading Time Taken Comments Blood Pressure 155/90 07/03/2013 1011 EDT Pulse - - Temperature 36.9 ??C (98.4 ??F) 07/03/2013 1011 EDT Respiratory Rate 16 07/03/2013 1745 EDT Oxygen Saturation 100% 07/03/2013 1011 EDT Inhaled Oxygen Concentration - - Weight 110 kg (242 lb 8.1 oz) 06/26/2013 0923 ED T Height 189 cm (6' 2.41) 06/26/2013 0923 EDT Body Mass Index 30.79 06/26/2013 0923 EDT documented in this encounter Discharge Instructions * Discharge Instr - Activity* Kevyn Cowart DDS - 07/03/2013 16:06 EDT DENTAL REHABILITATION POST-OP INSTRUCTIONS ACTIVITY - [...] documented in this encounter Progress Notes * Xi Salcedo RN - 07/03/2013 1242 EDT Pt give oral versed for IV insertion * Xi Salcedo RN - 07/03/2013 1150 EDT Pt watching movie with parents relaxed Emla On right hand documented in this encounter H&P Notes * Kevyn Cowart DDS - 07/03/2013 1317 EDT The preoperative history and physical which was performed within 30 days of this procedure has been reviewed and the clinically appropriate elements of the physical examination have been repeated. There are no changes to the documented history and physical or if so such changes are documented below Kevyn Cowart DDS 07/03/2013 13:18 * EX ASSISTANT/PROGRAM DIRECTOR, RAUL 2 - 06/20/2013 1533 EDT documented in this encounter Nursing Notes * EX ASSISTANT/PROGRAM DIRECTOR, RAUL 2 - 07/09/2013 1848 EDT documented in this encounter OR Notes * OR Surgeon - Kevyn Cowart DDS - 07/15/2013 1326 EDT OPERATIVE REPORT SERVICE DATE: 07/03/2013 SURGEON: Kevyn Cowart DDS MALT HOUSE LOADER: None. PROCEDURE: Dental rehabilitation. ANESTHESIA: General via nasotracheal tube. PREOPERATIVE DIAGNOSES: 1. Acute situational anxiety. 2. Autism and gross dental caries. POSTOPERATIVE DIAGNOSES: 1. Acute situational anxiety. 2. Autism and gross dental caries. INDICATIONS: Due to this patient's complex health history including a diagnosis of autism, dental needs and parent desire, it was deemed necessary to treat this patient under general anesthesia to address this patient's dental needs. NARRATIVE: The patient had an IV line established in the preoperative area. The patient was escorted back to the operating room by his mother. Following successful mask induction, the mother was escorted back out to the waiting area. Anesthesia portion of this case then proceeded with successful nasotracheal intubation. The dental portion of this case then began. A thorough prophylaxis was done. X-rays had been done previous to the operating room. One bitewing radiograph was exposed to revaluate an area. A throat pack was placed. Under cotton roll isolation the following treatment was then performed for the patient. Tooth 2 received a stainless steel crown. Tooth 7 received a 1-surface composite oriental orthodox. Tooth 10 received a 1-surface composite oriental orthodox. Tooth 15 received a stainless steel crown. Tooth 22 received a 1-surface composite oriental orthodox. Fluoride treatment was then performed. The patient was then extubated in the operating room with all bleeding controlled and packs re moved and brought to recovery in good condition. Blood loss was minimal in this case. The throat pack was removed prior to the end of the case. Unless otherwise noted, there were no complications, no blood loss, no cultures obtained, no specimens removed, and no drains retained. Kevyn Cowart DDS 12 58 PM / Kevyn Cowart DDS ln Confirmation: [id number] Dictation ID: [id number] cc:Barron Morales MD * OR PreOp - EX ASSISTANT/PROGRAM DIRECTOR, SCAN 2 - 07/10/2013 1212 EDT * OR PreOp - EX ASSISTANT/PROGRAM DIRECTOR, SCAN 2 - 07/09/2013 1848 EDT * Anesthesia Procedure Notes - EX ASSISTANT/PROGRAM DIRECTOR, SCAN 2 - 07/03/2013 1621 EDT * Anesthesia Preprocedure Evaluation - EX ASSISTANT/PROGRAM DIRECTOR, SCAN 2 - 07/03/2013 1519 EDT documented in this encounter Miscellaneous Notes * Plan of Care - Georgina Floyd RN - 07/03/[address] Cowart at bedside. States mom is really good with pt. Pt can get upset easily so do minimalinterventions. Dr. Tanja Be stated VS not necessary. Pt is moving air well, is pink and warm and shows no signs of distress. Mom at bedside very attentive. Pt sleepy but responds well to commands. No nausea 1715 pt interacting with mom, eating a popsicle. No signs of distress. No nausea, pt moving air well skin is pink and warm 1730 mom states pt is ready to go. Pt has had tea and popsicles with no nausea. Pt getting dressed. * Anesthesia Post-Eval - Nimco Aguilar MD - 07/03/2013 1657 EDT Post Anesthesia Evaluation Note Date of Service: 07/03/2013 Donato Bagley, a 23 y.o. year old male has received General Anesthesia today. He has been evaluated, assessed and discharged from anesthesia care with stable cardiorespiratory function and alert mental status. The last set of recorded vital signs and pain rating were reviewed: BP: (Deferred by ) (07/03/13 1615), SpO2: (deferred by MD) (07/03/13 1615),Vasquez-West Pain Rating(Scale 0-10): No hurt Donato Bagley's mother participated in this evaluation unless otherwise noted. His pain, nausea andvomiting have been managed and his body temperature and fluid balance have been restored. Additional monitoring and assessment needs have been addressed. If present, any postoperative events are documented below. NIMCO AGUILAR MD 07/03/2013 16:57 * Brief Op Note - Kevyn Cowart DDS - 07/03/2013 1604 EDT Dental Rehabilitation Post op Note: Donato Bagley underwent an oral rehabilitation under general anesthesia for dental caries and acutesituational anxiety. Underlying medical disorders include: autism. 5 teeth were restored, and 0 teeth were extracted. Rectal Tylenol was administered for pain. Bleeding was minimal and controlled. Patient was extubated and sent to recovery in good condition. There were no complications, no packs, and no drains. Post-op instructions were reviewed with the parent / caregiver. Plan to discharge to home per anesthesia when PACU criteria are met. Kevyn Cowart DDS 07/03/2013 16:06 documented in this encounter Plan of Treatment Not on file documented as of this encounter Procedures Procedure Name Priority Date/Time Associated Diagnosis Comments ECG REPORT - SCANNED 07/09/2013 18:48 EDT documented in this encounter Results * ECG REPORT - SCANNED (07/09/2013 18:48 EDT) 07/09/2013 18:4 8 EDT Scan 2 Automotive Sales Manager PROCEDURE/MINOR LISA GICAL ORDERABLES documented in this encounter Visit Diagnoses Not on filedocumented in this encounter Administered Medications Inactive Administered Medications - up to 3 most recent administrations Medication Order MAR Action Action Date Dose Rate Site lactated ringers (LR) infusion at 25 mL/hr, intravenous, CONTINUOUS, Starting on Mon07/03/13 at 1330, Until Mon07/03/13 at 2013, Routine, Pre Op Day of Surgery New Bag 07/03/2013 13:09 EDT 25 mL/hr lactated ringers (LR) infusion at 75 mL/hr, intravenous, CONTINUOUS, Starting on Mon07/03/13 at 1630, Until Mon07/03/13 at 2014, Routine, Recovery (only) Rate Documented 07/03/2013 16:12 EDT 75 mL/hr lidocaine-prilocaine (EMLA) 2.5-2.5 % cream topical (top), Once (Without Time Specified), 1 dose, Starting on Mon07/03/13 at 1015, Until Mon07/03/13 at 1033, Pre-Op DOS Rx Approved Given 07/03/2013 10:33 EDT Right Arm midazolam (VERSED) syrup 20 mg 20 mg, oral, ONCE PRN, 1 dose, Starting on Mon07/03/13 at 1015, Until Mon07/03/13 at 1239, Other, Pediatric Anesthesia Pre-Op Medications: anxiolysis, Routine, Preprocedure Given 07/03/2013 12:39 EDT 20 mg documented in this encounter Active and Recently Administered Medications Times are shown in EDT. Scheduled Medication Order 07/01/2013 07/02/2013 07/03/2013 lidocaine-prilocaine (EMLA) 2.5-2.5 % cream (COMPLETED) topical (top), Once (Without Time Specified), 1 dose, Starting on Mon07/03/13 at 1015, Until Mon07/03/13 at 1033, Pre-Op DOS Rx Approved 1033 (Given - Provid er: Xi Salcedo RN) Continuous Medication Order 07/01/2013 07/02/2013 07/03/2013 lactated ringers (LR) infusion (CANCELED) at 25 mL/hr, intravenous, CONTINUOUS, Starting on Mon07/03/13 at 1330, Until Mon07/03/13 at 2013, Routine, Pre Op Day of Surgery 1309 (New Bag - Prov ider: Wendy Singh RN)1612 (Completed - Provider: Georgina Floyd RN) lactated ringers (LR) infusion (CANCELED) at 75 mL/hr, intravenous, CONTINUOUS, Starting on Mon07/03/13 at 1630, Until Mon07/03/13 at 2013, Routine, Recovery (only) 1612 (Rate Documente d - Provider: Georgina Floyd RN)1700 (Completed - Provider: Georgina Floyd RN) PRN Medication Order 07/01/2013 07/02/2013 07/03/2013 midazolam (VERSED) syrup 20 mg (COMPLETED) 20 mg, oral, ONCE PRN, 1 dose, Starting on Mon07/03/13 at 1015, Until Mon07/03/13 at 1239, Other, Pediatric Anesthesia Pre-Op Medications: anxiolysis, Routine, Preprocedure 1239 (Given - Provid er: Xi Salcedo RN) documented in this encounter Orders Medications Ordered That Yosvany ht Not Have Been Administered Count Last Ordered Date First Ordered Date acetaminophen (TYLENOL) tablet 325 mg 1 atropine 0.1 mg/mL syringe 0.4 mg 1 014 nalOXone (NARCAN) injection 0.2 mg 1 2013 ondansetron (PF) (ZOFRAN) injection 2 mg 1 07/03/2013 documented in this encounter Care Teams Metal Treater Relationship Specialty Start Date End Date Barron Morales MD [address] [place] [address] PCP - General 04/26/11 05/17/21 documented as of this encounter
--- OUTSIDE RECORDS SUMMARY | 2023-11-09 16:37 | XMS_ITS | Encounter Summary ---
Author Organization [facility] [place] [address] Care Team Providers Care Real Estate Administrative Assistant Name Role Phone Barron Morales MD Primary Care Provider [phone] Encounter Details Date Type Department Care Team (Latest Contact Info) Description 07/01/2021 11:15 AM EDT Ancillary [place] [address] Barron Morales MD [address] [place] [address] Pleural effusion, bilateral Social History Tobacco Use Types Packs/Day Years Used Date Smoking Tobacco: Never Assessed Sex and Gender Information Value Date Recorded Sex Assigned at Not on file Gender Identity Not on file Sexual Orientation Not on file documented as of this encounter Progress Notes * Minh Barriga MD - 07/01/2021 11:15 AM EDT Interventional Radiology - Brief Consult Note Patient Name: Donato Bagley : [id number] MR#: [id number] Received a phone call through the transfer center from Dr. Barrett regarding Mr. Bagley, who has trace bilateral pleural effusions which are not amenable to pleural drainage at this small volume. This was communicated to Dr. Barrett who agreed. Thank you for allowing us to participate in the care of this patient. Minh Barriga MD Interventional & Diagnostic Radiology Pager [phone] 07/01/2021 documented in this encounter Plan of Treatment Not on file documented as of this encounter Procedures Procedure Name Priority Date/Time Associated Diagnosis Comments FILM LIBRARY STORAGE ONLY CT ABDOMEN AND PELVIS Routine 07/01/2021 11:10 AM EDT documented in this encounter Results * Film Library- Storage Only CT Abdomen & Pelvis (07/01/2021 11:10 AM EDT) Narrative [facility] [place] - 07/01/2021 11:10 AM EDT This exam is auto-finalizing. It's purpose is for storage only. Barron Morales MD IMG FILM LIBRARY ORD ERABLES Performing Organization Address City/State/[facility] Co de Phone Number [place], [place] documented in this encounter Visit Diagnoses Diagnosis Pleural effusion, bilateral Unspecified pleural effusion documented in this encounter Care Teams Real Estate Administrative Assistant Relationship Specialty Start Date End Date Barron Morales MD [address] [place] [address] PCP - General 02/09/10 documented as of this encounter
--- OUTSIDE RECORDS SUMMARY | 2023-11-09 16:37 | XMS_ITS | Encounter Summary ---
Author Organization [facility] Address [address] [place] [address] Care Team Providers Care Grinder Set Up Operator Thread Tool Name Role Phone Barron Morales MD Primary Care Provider [phone] Encounter Details Date Type Department Care Team (Latest Contact Info) Description 08/02/2017 10:52 EDT - 08/02/2017 18:00 EDT Hospital Encounter [facility] Perioperative Services - [address] [address] Kevyn Cowart, DDS [address] [place], [place] [id number] Discharge Disposition: Home or Self Care Social History Tobacco Use Types Packs/Day Years Used Date Smoking Tobacco: Never Assessed Sex and Gender Information Value Date Recorded Sex Assigned at Not on file Gender Identity Not on file Sexual Orientation Not on file documented as of this encounter Last Filed Vital Signs Vital Sign Reading Time Taken Comments Blood Pressure 136/77 08/02/2017 1745 EDT Pulse - - Temperature 37.3 ??C (99.1 ??F) 08/02/2017 1745 EDT Respiratory Rate 15 08/02/2017 1745 EDT Oxygen Saturation 96% 08/02/2017 1745 EDT Inhaled Oxygen Concentration - - Weight 99.3 kg (219 lb) 07/26/2017 0943 EDT Height - - Body Mass Index 27.81 06/26/2013 0923 EDT documented in this encounter Discharge Diagnoses Diagnosis F41.8 Other specified anxiety disorders-F41.8[ICD-10-CM] F84.0 Autistic disorder-F84.0[ICD-10-CM] K02.9 Dental caries, unspecified-K02.9[ICD-10-CM] I10 Essential (primary) hypertension-I10[ICD-10-CM] K21.9 Gastro-esophageal reflux disease without esophagitis-K21.9[ICD-10-CM] E66.9 Obesity, unspecified-E66.9[ICD-10-CM] Z68.30 Body mass index (BMI) 30.0-30.9, adult-Z68.30[ICD-10-CM] Z79.899 Other half-way (current) drug therapy-Z79.899[ICD-10-CM] documented in this encounter Discharge Instructions * Medications* Maribell Quinn RN - 08/02/2017 16:05 EDT Acetaminophen was given at 1445. Next dose, 1000mg, can be given at 845pm as needed. Pls follow directions on botttle. Ibuprofen, 600mg, can be taken 9:15. Please folow directions on bottle. * Discharge Instr - Activity* Kevyn Cowart DDS - 08/02/2017 15:34 EDT DENTAL REHABILITATION POST-OP INSTRUCTIONS ACTIVITY - [...] Sig Dispensed Refills Start Date End Date hydroCHLOROthiazide (HYDRODIURIL) 25 mg tablet Take 12.5 mg by mouth daily. MULTIVITAMIN ORAL Take 1 Tab by mouth daily. pantoprazole (PROTONIX) 40 mg tablet Take 40 mg by mouth daily. sertraline (ZOLOFT) 50 mg tablet Take 50 mg by mouth daily. documented as of this encounter Discharge Disposition Disposition Code Departure Means Destination Home or Self Care documented in this encounter Progress Notes * Diandra Schwartz RN - 07/26/2017 0925 EDT Donato Bagley has been instructed as follows regarding medication administration for the day of thescheduled procedure. Date of Surgery: 08/02/2017 Instructions for Taking Medications Day of Surgery Medication Sig Last Dose Hold DOS Take DOS hydroCHLOROthiazide (HYDRODIURIL) 25 mg tablet Take 12.5 mg by mouth daily. x MULTIVITAMIN ORAL Take 1 Tab by mouth daily. 07/26/2017 pantoprazole (PROTONIX) 40 mg tablet Take 40 mg by mouth daily. Yes sertraline (ZOLOFT) 50 mg tablet Take 50 mg by mouth daily. Yes documented in this encounter H&P Notes * Kevyn Cowart DDS - 08/02/2017 1301 EDT The preoperative history and physical which was performed within 30 days of this procedure has been reviewed and the clinically appropriate elements of the physical examination have been repeated. There are no changes to the documented history and physical or if so such changes are documented below Kevyn Cowart DDS 08/02/2017 13:01 documented in this encounter OR Notes * OR Surgeon - Kevyn Cowart DDS - 08/02/2017 0000 EDT OPERATIVE REPORT SERVICE DATE: 08/02/2017 SURGEON: Kevyn Cowart DDS DOCUMENTATION ANALYST: None. PROCEDURE: Dental rehabilitation. ANESTHESIA: General via nasotracheal tube. PREOPERATIVE DIAGNOSES: 1. Acute situational anxiety. 2. Autism and gross dental caries. POSTOPERATIVE DIAGNOSES: 1. Acute situational anxiety. 2. Autism and gross dental caries. INDICATIONS: Due to this patient's complicated health history including a diagnosis of autism, inability to cooperate in the traditional dental setting, guardian's desire and dental needs, it was deemed necessary to treat this patient under anesthesia to address this patient's dental needs. NARRATIVE: An IV line was established in the preoperative area. The patient was brought back to theoperating room. A mask induction was done and a successful nasotracheal intubation was performed bythe anesthesia team. Dental portion of this case then began. One lower right periapical radiograph was exposed. I reviewed the clinical exam and the preoperative x-rays that were taken in the office in January 2017 as well as the current x-ray, all confirming the preoperative diagnosis. A throat pack was placed. Rubber dam was placed on the upper arch and on the upper arch the following treatment was then performed: Teeth 6, 7, and 11 received 2-surface composite restorations. Teeth 8 and 9 rec eived 1-surface composite restorations. Tooth 10 received a 3-surface composite mandaeism. The rubber dam was then removed from the upper arch and placed on the lower arch. On the lower arch, the following treatment was then performed: Teeth 28 and 29 received 3-surface composite restorations. Rubber dam was removed from the lower arch. Thorough prophylaxis and fluoride treatment were then performed. The throat pack was then removed. The patient was escorted to the postoperative area following removal of the throat pack and extubation in the operating room. Blood loss was minimal in this case. Unless otherwise noted, there were no complications, no blood loss, no cultures obtained, no specimens removed, and no drains retained. Kevyn Cowart DDS 10 59 PM / Kevyn Cowart DDS jn Confirmation: [id number] Dictation ID: [id number] cc:Barron Morales MD documented in this encounter Miscellaneous Notes * Anesthesia Post-Eval - Olimpia Healyle - 08/02/2017 1654 EDT Anesthesia Post op Note Donato Bagley PF103/01 Anesthesia received: General; Vital Signs: Temp: 36.8 ??C (98.2 ??F), Heart Rate: 66 BPM, BP: 122/70, Resp: 14, SpO2: 96 % Vital signs Stable: Yes Consciousness: Arousable to voice Patient's participation in evaluation:Able to participate Temperature Status: Normothermic Respiratory Status: Airway patent Supplemental O2: Room air Oxygen Saturation: Within patient's normal range Cardiovascular Status: Within patient's normal range Post-op Hydration: Adequate Nausea / Vomiting: None Pain Control: Adequate Current Pain Score: Numeric Pain Level (Scale 1-10): 0 Post-op Assessment: Tolerated procedure well, No evidence of recall Disposition: Home Complications: No apparent anesthetic complications Chavo Healy MD 08/02/2017 16:54 * Brief Op Note - Kevyn Cowart DDS - 08/02/2017 1533 EDT Dental Rehabilitation Post op Note: Donato [...] PACU criteria are met. Kevyn Cowart DDS 08/02/2017 15:34 documented in this encounter Plan of Treatment Not on file documented as of this encounter Procedures Procedure Name Priority Date/Time Associated Diagnosis Comments ECG REPORT - SCANNED 08/07/2017 12:41 EDT documented in this encounter Results * ECG REPORT - SCANNED (08/07/2017 12:41 EDT) 08/07/2017 12:4 1 EDT Scan 2 Furnace Repairer Helper PROCEDURE/MINOR LISA GICAL ORDERABLES documented in this encounter Visit Diagnoses Not on filedocumented in this encounter Administered Medications Inactive Administered Medications - up to 3 most recent administrations Medication Order MAR Action Action Date Dose Rate Site atropine 0.1 mg/mL syringe 0.5 mg 0.5 mg, intravenous, PRN, Starting on Mon08/02/17 at 1543, Until Mon08/02/17 at 2005, Symptomatic HR < 50, Routine, Recovery (only) diphenhydrAMINE (BENADRYL) injection 12.5 mg 12.5 mg, intravenous, PRN, 1 dose, Starting on Mon08/02/17 at 1543, Until Mon08/02/17 at 2005, nausea, Routine, Recovery (only) fentaNYL citrate (PF) 50 mcg/mL injection 25-50 mcg 25-50 mcg, intravenous, EVERY 5 MIN PRN, Starting on Mon08/02/17 at 1543, Until Mon08/02/17 at 2005, Pain, Routine, Recovery (only) lactated ringers (LR) infusion at 25 mL/hr, intravenous, CONTINUOUS, Starting on Mon08/02/17 at 1245, Until Mon08/02/17 at 2005, Routine, Pre Op Day of Surgery Rate Documented 08/02/2017 15:46 EDT 25 mL/hr New Bag 08/02/2017 12:23 EDT 25 mL/hr lactated ringers (LR) infusion at 75 mL/hr, intravenous, CONTINUOUS, Starting on Mon08/02/17 at 1600, Until Mon08/02/17 at 2005, Routine, Recovery (only) Rate Documented 08/02/2017 15:46 EDT 75 mL/hr lidocaine-tetracaine (SYNERA) 70-70 mg patch 1 Patch 1 Patch, transdermal, NOW X1, 1 dose, On Mon08/02/17 at 0000, Routine Patch Applied 08/02/2017 11:37 EDT 1 Patch Left Arm metoCLOPramide (REGLAN) injection 10 mg 10 mg, intravenous, PRN, 1 dose, Starting on Mon08/02/17 at 1543, Until Mon08/02/17 at 2005, Nausea, Routine, Recovery (only) naloxone (NARCAN) injection 0.2 mg 0.2 mg, intravenous, PRN, Starting on Mon08/02/17 at 1543, Until Mon08/02/17 at 2005, Opioid Reversal, Routine, Recovery (only) ondansetron (PF) (ZOFRAN) injection 4 mg 4 mg, intravenous, PRN, 1 dose, Starting on Mon08/02/17 at 1543, Until Mon08/02/17 at 2005, Nausea, Vomiting, Routine, Recovery (only) documented in this encounter Historical Medications * This list may reflect changes made after this encounter. Medication Sig Dispensed Refills Start Date End Date pantoprazole (PROTONIX) 40 mg tablet Take 40 mg by mouth daily. sertraline (ZOLOFT) 50 mg tablet Take 50 mg by mouth daily. hydroCHLOROthiazide (HYDRODIURIL) 25 mg tablet Take 12.5 mg by mouth daily. added in this encounter Active and Recently Administered Medications Times are shown in EDT. Scheduled Medication Order 07/31/2017 08/01/2017 08/02/2017 lidocaine-tetracaine (SYNERA) 70-70 mg patch 1 Patch (COMPLETED) 1 Patch, transdermal, NOW X1, 1 dose, On Mon08/02/17 at 0000, Routine 1137 (Patch Applied - Provider: Wendy Singh RN) Continuous Medication Order 07/31/2017 08/01/2017 08/02/2017 lactated ringers (LR) infusion at 25 mL/hr, intravenous, CONTINUOUS, Starting on Mon08/02/17 at 1245, Until Mon08/02/17 at 2006, Routine, Pre Op Day of Surgery 1223 (New Bag - Prov ider: Wendy Singh RN)1546 (Rate Documented - Provider: Maribell Quinn, JENNY)1547 (Completed - Provider: Maribell Quinn, JENNY) lactated ringers (LR) infusion at 75 mL/hr, intravenous, CONTINUOUS, Starting on Mon08/02/17 at 1600, Until Mon08/02/17 at 2006, Routine, Recovery (only) 1546 (Rate Documente d - Provider: Maribell Quinn, JENNY) PRN Medication Order 07/31/2017 08/01/2017 08/02/2017 atropine 0.1 mg/mL syringe 0.5 mg 0.5 mg, intravenous, PRN, Starting on Mon08/02/17 at 1543, Until Mon08/02/17 at 2005, Symptomatic HR < 50, Routine, Recovery (only) diphenhydrAMINE (BENADRYL) injection 12.5 mg 12.5 mg, intravenous, PRN, 1 dose, Starting on Mon08/02/17 at 1543, Until Mon08/02/17 at 2005, nausea, Routine, Recovery (only) fentaNYL citrate (PF) 50 mcg/mL injection 25-50 mcg 25-50 mcg, intravenous, EVERY 5 MIN PRN, Starting on Mon08/02/17 at 1543, Until Mon08/02/17 at 2005, Pain, Routine, Recovery (only) metoCLOPramide (REGLAN) injection 10 mg 10 mg, intravenous, PRN, 1 dose, Starting on Mon08/02/17 at 1543, Until Mon08/02/17 at 2005, Nausea, Routine, Recovery (only) naloxone (NARCAN) injection 0.2 mg 0.2 mg, intravenous, PRN, Starting on Mon08/02/17 at 1543, Until Mon08/02/17 at 2005, Opioid Reversal, Routine, Recovery (only) ondansetron (PF) (ZOFRAN) injection 4 mg 4 mg, intravenous, PRN, 1 dose, Starting on Mon08/02/17 at 1543, Until Mon08/02/17 at 2005, Nausea, Vomiting, Routine, Recovery (only) documented in this encounter Orders Medications Ordered That Yosvany ht Not Have Been Administered Count Last Ordered Date First Ordered Date atropine 0.1 mg/mL syringe 0.5 mg 1 018 diphenhydrAMINE (BENADRYL) i njection 12.5 mg 1 08/02/2017 fentaNYL citrate (PF) 50 mcg /mL injection 25-50 mcg 1 08/02/2017 metoCLOPramide (REGLAN) injection 10 mg 1 0 08/02/2017 naloxone (NARCAN) injection 0.2 mg 1 2017 ondansetron (PF) (ZOFRAN) injection 4 mg 1 08/02/2017 Transfer Count Last Ordered Date First Orde red Date NOTIFY PPS PACU PATIENT DISCHARGE 1 018 documented in this encounter Care Teams Grinder Set Up Operator Thread Tool Relationship Specialty Start Date End Date Barron Morales MD [address] [place] [id number] PCP - General 04/26/11 05/17/21 documented as of this encounter
--- OUTSIDE RECORDS SUMMARY | 2023-11-09 16:37 | XMS_ITS | Referral Summary ---
Author Organization [facility] Address [address] [place] [address] Care Team Providers Care Beef Tagger Name Role Phone Tommy Marti MD Primary Care Provider [phone] Allergies Active Allergy Reactions Criticality Noted Date Comments Lactose Intolerance (Lactase) Other (See Comments) 05/25/2011 ? Lactose Intolerant- sinus congestion Medications Medication Sig Dispensed Refills Start Date End Date Status MULTIVITAMIN ORAL Take 1 Tab by mouth daily. Active hydroCHLOROthiazide (HYDRODIURIL) 25 mg tablet Take 12.5 mg by mouth daily. Active sertraline (ZOLOFT) 50 mg tablet Take 50 mg by mouth daily. Active pantoprazole (PROTONIX) 40 mg tablet Take 40 mg by mouth daily. Active Social History Tobacco Use Types Packs/Day Years Used Date Smoking Tobacco: Never Assessed Interpersonal Safety Answer Date Record ed Physically Hurt Never 10/20/2019 Verbally Threaten Not on file 10/20/2019 Sex and Gender Information Value Date Recorded Sex Assigned at Not on file Gender Identity Not on file Sexual Orientation Not on file Last Filed Vital Signs Vital Sign Reading Time Taken Comments Blood Pressure 136/77 08/02/2017 1745 EDT Pulse - - Temperature 37.3 ??C (99.1 ??F) 08/02/2017 1745 EDT Respiratory Rate 15 08/02/2017 1745 EDT Oxygen Saturation 96% 08/02/2017 1745 EDT Inhaled Oxygen Concentration - - Weight 99.3 kg (219 lb) 07/26/2017 0943 EDT Height 189 cm (6' 2.41) 06/26/2013 0923 EDT Body Mass Index 27.81 06/26/2013 0923 EDT Plan of Treatment [place] [address] Donato Bagley Personal/Famil y Self [address] [place], [place] [address] [address] Donato Bagley Personal/Famil y Self 1990 [address] [facility] [place] [address] Donato Bagley Personal/Famil y Self 1990 [address] [facility] [place] [address] Donato Bagley Personal/Famil y Self 1990 [address] [facility] [place] [address] Donato Bagley Personal/Famil y Self 1990 [address] [facility] [place] [address] Donato Bagley Personal/Famil y Self [address] [place], [place] [address] [address] Care Teams Beef Tagger Relationship Specialty Start Date End Date Tommy Marti MD [address] [place] [address] PCP - General Emergency Medicine 05/18/21
--- OUTSIDE RECORDS SUMMARY | 2023-11-09 16:37 | XMS_ITS | Encounter Summary ---
Author Organization [facility] Address [address] [place] [address] Care Team Providers Care Junior Software Developer Name Role Phone Tommy Marti MD Primary Care Provider [phone] Encounter Details Date Type Department Care Team (Late st Contact Info) Description 06/28/2021 Lab Requisition [facility] Pathology & Laboratory Medicine - [address] [address] Lashanda Cardenas, DO [address] [facility] [place] [address] Unspecified acute appendicitis Social History Tobacco Use Types Packs/Day Years [...] Procedure Name Priority Date/Time Associated Diagnosis Comments SURGICAL PATHOLOGY Today 06/26/2021 12 :41 EDT Unspecified acute appendicitis documented in this encounter Results * SURGICAL PATHOLOGY (06/26/2021 12:41 EDT) Note to Patient The following pathology results have been interpreted by your pathologist and may be available to you before your health provider has had the opportunity to review them. Please allow time for your provider to receive these results and explore management options, if applicable. 07/01/2021 9:39 [facility] Final Diagnosis A. APPENDIX, APPENDECTOMY: - Acute appendicitis. 07/01/2021 9:39 [facility] Attestation There was significant resident/fellow involvement in the diagnostic evaluation of this case. By the signature below, the attending physician certifies that they have personally conducted a gross and/or microscopic examination of the described specimens and rendered or confirmed the above diagnosis. 07/01/2021 9:39 [facility] at 0939 Clinical History Unspecified acute appendicitis 07/01/2021 9:39 [facility] Gross Description A. Received in formalin labelled with proper patient identification (initials W, S) and appendix is an appendix (7.5 cm in length x 1.2 cm in diameter), with a moderate amount of firm, attached mesoappendix. The proximal margin is stapled. The serosa is white, focally brown, with some exudate. The cut surface is white, and focally hemorrhagic. The average wall thickness is 0.3 cm. A perforation site is not identified. The lumen ranges from 0.1-0.3 cm to in diameter. A fecalith is not identified. The proximal margin is inked blue. The section adjacent to the stapled proximal margin, 1 financial service representative cross section and one half of the longitudinally bisected distal tip are submitted in A1. CHARLES ANGULO MD PhD 06/29/2021 15:16 07/01/2021 9:39 [facility] Resident/Helder w: Charles Angulo MD PhD 07/01/2021 9:39 [facility] Performing Lab [facility] 07/01/2021 9:39 [facility] Scanned Images 07/01/2021 9:39 [facility] Tissue ENTIRE APPENDIX / Unknown 06/26/2021 12:41 EDT 06/28/2021 17:29 EDT Lashanda Cardenas DO PATHOLOGY ORDER [facility] [address] [place] [address] documented in this encounter Visit Diagnoses Diagnosis Unspecified acute appendicitis documented in this encounter Care Teams Junior Software Developer Relationship Specialty Start Date End Date Tommy Marti MD [address] [facility] [address] [place] [address] PCP - General Emergency Medicine 05/18/21 documented as of this encounter
--- OUTSIDE RECORDS SUMMARY | 2023-11-09 16:37 | XMS_ITS | Clinical Summary ---
Author Organization [facility] Address [address] [place] [address] Care Team Providers Care English Language Learner Tutor Name Role Phone Tommy Marti MD Primary Care Provider [phone] Allergies Active Allergy Reactions Criticality Noted Date [...] 27.81 06/26/2013 0923 EDT Plan of Treatment Health Maintenance Due Date Last Done Comments Hepatitis C Screen 1990 Hepatitis B Vaccine (1 of 3 - 19+ 3-dose series) 06/01 COVID-19 Vaccine (2022- season) 2022 Care Teams English Language Learner Tutor Relationship Specialty Start Date End Date Tommy Marti MD [address] [place] [address] [address] [place], [place] [address] PCP - General Emergency Medicine 05/18/21
--- OUTSIDE RECORDS SUMMARY | 2023-11-09 16:37 | XMS_ITS | Encounter Summary ---
Author Organization [facility] Address [address] [place] [address] Care Team Providers Care Kosher Inspector Name Role Phone Unavailable Primary Care Provider Unavailabl e Encounter Details Date Type Department Care Team (Latest Contact Info) Description 05/10/2002 10:20 EST - 05/10/2002 11:59 EST Hospital Encounter [address] [address] Kevyn Cowart, DDS [address] [place] [address] Discharge Disposition: Auto Discharge Social History Tobacco Use Types Packs/Day Years Used Date Smoking Tobacco: Never Assessed Sex and Gender Information Value Date Recorded Sex Assigned at Not on file Gender Identity Not on file Sexual Orientation Not on file documented as of this encounter Discharge Disposition Disposition Code Departure Means Destination Auto Discharge documented in this encounter Plan of Treatment Not on file documented as of this encounter Visit Diagnoses Not on filedocumented in this encounter
--- OUTSIDE RECORDS SUMMARY | 2023-11-09 16:37 | XMS_ITS | Clinical Summary ---
Author Organization [facility] Address [facility] [place] [address] Care Team Providers Care Sales Office Assistant Name Role Phone Barron Morales MD Primary Care Provider [phone] Allergies No known active allergies Medications Medication Sig Dispensed Refills Start Date End Date Status VALPROIC ACID ORAL 10/22/2009 Active cetirizine (ZYRTEC) 10 mg tablet 10 MG = 1 Tablet(s), PO, Once daily,PRN 10/22/2009 Active albuterol (PROVENTIL HFA;VENTOLIN HFA) 90 mcg/Actuation inhaler 1-2 puffs , Inh, Q4-6H,PRN 10/22/2009 Active Social History Tobacco Use Types Packs/Day Years Used Date Smoking Tobacco: Never Assessed Sex and Gender Information Value Date Recorded Sex Assigned at Not on file Gender Identity Not on file Sexual Orientation Not on file Plan of Treatment Health Maintenance Due Date Last Done Comments HIV screen 2006 Hepatitis C Screening 2006 Lipid Screening 2006 Hepatitis B vaccine (0-59 yrs) (1) 06/02/2007 Tdap adult 06/02/2007 Tetanus vaccine 06/02/2007 Covid-19 Vaccine ( season) 2022 Influenza (Flu) vaccine (1 o f 1 - Influenza standard series) 11/19/2023 Care Teams Sales Office Assistant Relationship Specialty Start Date End Date Barron Morales MD [address] [place] [address] PCP - General 02/09/10
--- OUTSIDE RECORDS SUMMARY | 2023-11-09 16:37 | XMS_ITS | Continuity of Care Document ---
Author Organization [place] - [facility] Address [address] [place] [address] Assessment Encounter Date Assessment Date Assessment LastModified by Organization Details LastModified Time 11/09/2023 11/09/2023 Donato is a 33yo male with PMH of autism spectrum disorder, prediabetes, and HTN here today to establish care with Dr. Mohan. Patient seen with Ernesto Ge, MS3 from [facility]. Patient seen and evaluated by me, Dr. Mohan, and I reviewed and edited the note. [email or web address] Not available 11/09/2023 13:34:46 Plan of Treatment Reminders Order Date Submit Date Provider Last Modified By Organization Details Last Modified Time Details Appointments Office Visit 2023 09:00A M Not available Not available Not available Office Visit 30 2023 09:00A M Not available Not available Not available Lab CMP, serum or plasma - 1 tiger and 1 purple drawn in office-SN 2023 024 H[place] [facility] (Registration ), [address] [place] [address] [place], [address], 11/09/2023 16:18:30 lipid panel, serum [email or web address] [facility] (Registration ), [address] [place] [address] [place], [address], 11/09/2023 11:09:05 HbA1c (hemoglob in A1c), blood [email or web address] [facility] (Registration ), [address] [place] [address] [place], [address], 11/09/2023 11:09:05 Referral physical therapist referral - duck footed, shuffling , trips, hip pain. Prefers Brittani Moscoso 2023 024 ISAEL Miguel PT, [address], [place], [address], 11/09/2023 11:01:07 Procedures None recorded. Surgeries None recorded. Imaging None recorded. Medication Orders lorazepam 0.5 mg tablet 2023 024 [email or web address] [facility], [address] [place], [address], 11/09/2023 10:43:22 Patient TargetsNo targets recorded. Patient InstructionsNo instructions recorded. Reason for Referral Physical Therapist Referral for Shuffling gait duck footed, shuffling, trips, hip pain. 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 002 Problem Code: R62.50; Problem Code Type: ICD-10; Not Available [facility] 3 05:51:00 Autistic disorder Active 010 Problem Code: F84.0; Problem Code Type: ICD-10; rEnesto dominguez [facility] 4 10:25:24 Asthma Completed 005 12/27/2004 Not Available [facility] 3 05:51:00 Cough Active 015 Problem Code: R05; Problem Code Type: ICD-10; Not Available [facility] 3 05:51:00 Nasal congestion Active 015 Problem Code: R09.81; Problem Code Type: ICD-10; Not Available [facility] 3 05:51:01 Obesity Active 016 Problem Code: E66.9; Problem Code Type: ICD-10; Not Available [facility] 3 05:51:01 Essential hypertension Active 016 Problem Code: I10; Problem Code Type: ICD-10; Ernesto dominguez, [facility] 4 10:25:35 Anxiety disorder Active 018 Problem Code: F41.9; Problem Code Type: ICD-10; Not Available [facility] 3 05:51:01 Dental caries Active 018 Problem Code: K02.9; Problem Code Type: ICD-10; Not Available [facility] 3 05:51:01 Acanthosis nigricans Active 020 Problem Code: L83; Problem Code Type: ICD-10; Not Available [facility] 3 05:51:01 Pain of toe of right foot Completed 11/19/2019 11/13/2019 - Comments only - Jerzy Skaggs RPA - I suspect secondary to mild trauma. Advised ice and Advil for the next couple of days. Problem Code: M79.674; Problem Code Type: ICD-10; Not Available [facility] 3 05:51:02 Prediabetes Active 020 Problem Code: R73.03; Problem Code Type: ICD-10; Ernesto Romerokenton alberto, [facility] 4 10:25:43 [place] - lesion Active 022 Problem Code: L84; Problem Code Type: ICD-10; Not Available [facility] 3 05:51:02 Acute stress disorder Active 023 Problem Code: F43.0; Problem Code Type: ICD-10; Not Available [facility] 3 05:51:02 Elevated blood-pressure reading without diagnosis of hypertension Completed 016 12/14/2022 Problem Code: R03.0; Problem Code Type: ICD-10; Not Available [facility] 3 05:51:08 Acute appendicitis Completed 022 09/29/2021 Problem Code: K35.80; Problem Code Type: ICD-10; Not Available [facility] 3 05:51:10 Stereotypy habit disorder Completed 016 09/29/2021 Problem Code: F98.4; Problem Code Type: ICD-10; Not Available [facility] 3 05:51:18 Shuffling gait Active 024 JADA MOHAN MD [address], [place], [address] , [facility] 4 10:01:37 Problem Notes None recorded. Medical Equipment None Reported. Allergies Allergen ID Allergen Name Allergen Category Reaction Reaction Severity Criticality Documentation Date Start Date Code Code System Note Provider Name and Address Organization Details Recorded Time 63718 lactose food,medi cation Not available Not available Not available 11/09/2023 6211 RxNorm ORIN FRAZIER, [facility] 4 09:02:27 Medications Name Sig Start [...] three times a day 09/29 completed Per [facility] d/c summary 07/04/21 Not Available Not Available Not Available chlorthal idone 25 mg tablet Take 0.5 tab by mouth daily 08/02 completed Not Available Not Available Not Available tramadol 50 mg tablet Take 1 tablet by mouth every six hours as needed 09/29 completed Per [facility] d/c summary 07/04/21 Not Available Not [...] Available Not Available Nasonex 50 mcg/actua tion Dalton 2 sprays in each nostril daily 07/05 completed Not Available Not Available Not Available levofloxa jose a 750 mg tablet Take 1 tablet by mouth once a day Take for 7 days 09/29 completed Per [facility] d/c summary 07/04/21 Not Available Not Available Not Available fluticaso ne propionat e 50 mcg/actua tion nasal spray,melissa pension 2 sprays daily 10/16 completed Not [...] 4 189.23 cm 97.8 [degF] 31.5 kg/m2 088819. 5 g 99 % 99 % 74 /min 144 mm[Hg] 78 mm[Hg] VAUGHN ESPINOSA MA [facility] 4 09:06:25 Social History None recorded. [...] Recorded Time MMR 12/28/1989 completed Not Available [facility] 05:19:48 DTaP, unspecified formulation 05/14/1990 completed Not Available [facility] 01/27/2023 05:19:49 DTaP, unspecified formulation 1988 completed Not Available [facility] 01/27/2023 05:19:49 DTaP, unspecified formulation 1988 completed Not Available [facility] 01/27/2023 05:19:49 DTaP, unspecified formulation 11/10/1993 completed Not Available [facility] 01/27/2023 05:19:49 DTaP, unspecified formulation 1988 completed Not Available [facility] 01/27/2023 05:19:49 Tdap 10/16/2014 completed Not Available [facility] 05:19:49 Td(adult) unspecified formulation 01/08/2004 completed Not Available [facility] 01/27/2023 05:19:50 Hib, unspecified formulation 12/28/1989 completed Not Available [facility] 01/27/2023 05:19:51 COVID-19, mRNA, LNP-S, PF, 30 mcg/0.3 mL dose 04/05/2021 completed Not Available [facility] 01/27/2023 05:19:51 COVID-19, mRNA, LNP-S, PF, 30 mcg/0.3 mL dose 07/30/2020 completed Not Available [facility] 01/27/2023 05:19:51 COVID-19, mRNA, LNP-S, PF, 30 mcg/0.3 mL dose 08/20/2020 completed Not Available [facility] 01/27/2023 05:19:52 varicella 03/15/2007 completed Not Available [facility] 05:19:52 Hep B, unspecified formulation 09/06/2001 completed Not Available [facility] 01/27/2023 05:19:52 Hep B, unspecified formulation 12/05/2000 completed Not Available [facility] 01/27/2023 05:19:52 Hep B, unspecified formulation 01/19/2001 completed Not Available [facility] 01/27/2023 05:19:52 polio, unspecified formulation 05/14/1990 completed Not Available [facility] 01/27/2023 05:19:52 polio, unspecified formulation 1988 completed Not Available [facility] 01/27/2023 05:19:53 polio, unspecified formulation 1988 completed Not Available [facility] 01/27/2023 05:19:53 polio, unspecified formulation 1988 completed Not Available [facility] 01/27/2023 05:19:53 Past Encounters Encounter ID Performer Location Encounter Start Date Encounter Closed Date Diagnosis/Indication Diagnosis SNOMED-CT Code [id number] JADA MOHAN MD [address] [address] 11/09/2023 08:52:42 11/09/2023 10:37:28 Obesity 636441289 Essential hypertension 22793545 Prediabetes 459677412 Shuffling gait 63566823 Anxiety disorder 0263549 06 Health Concerns Section Related Observation LastModified by Organization Detai ls LastModified Time None Recorded Concern Status LastModified by Organization Details LastModified Time None Recorded Payers Encounter Date Sequence Insurance Name Policy Number Policy Vidal Covered Member ID Vidal Member ID Guarantor Name 11/09/2023 2 [facility] (MEDICAID) Donato Bagley [id number] Donato Bagley 11/09/2023 1 MEDIC[place] [email or web address] Donato Bagley [id number] Donato Bagley Notes Date Note Type [...] a good relationship. He is going to [facility] for a consult appointment on December 17 to discuss procedures. He needs some teeth pulled. Mother requested lorazepam to help his anxiety around this appointment. [facility] shows that Lorazepam was last sold on 11/18/2022 for 2 days. Prediabetes- He has been eating more vegetables and lots of protein. His HbA1c was 5.7 in 2019. They have not had it checked recently. Mood- He said his mood has been ok. He wants to move out of their current apartment because it is small. He was previously on sertraline for anxiety, but that didn't seem to help much. JADA MOHAN MD [address], [place], [address], [facility]. 11/09/2023 13:35:53
== END 2023-11-09 16:36 | disposition home or self-care (01) ==
LOC: NCHCN 16:35
PROVIDERS: PCP Family Medicine; Visit Provider Family Medicine
DX: E66.9 Obesity, unspecified (principal); R73.03 Prediabetes
CPT/HCPCS: 80053; 80061; 83036